=== PATIENT | male | born 1945 | race Caucasian/White ===

== ENCOUNTER → 2016-06-06 | Outpatient (CLI) | payer OTHER, MEDICARE ==
--- NOTE | 2016-06-06 16:31 | US ---
Ultrasound Right Extremity Nonvascular History: R22.9, localized swelling, mass, lump anterior right thigh. Findings: Ultrasound imaging of the anterior distal right thigh region corresponding to the area of palpable concern demonstrates normal-appearing subcutaneous soft tissue, measuring up to 2.6 cm in th ickness, without evidence of focal identifiable mass. However, this appears asymmetrically thicker t perez the left anterior thigh, which measures up to 1.7 cm. Impressions 1. Asymmetric subcutaneous fat along the anterior right thigh corresponding to the region of palpabl e concern, without evidence of focal discrete soft tissue mass. 2. Recommend MRI thigh, without and with contrast, for further evaluation if there is continued clin ical concern.
== END ==
LOC: FIMAGING 12:48
PROVIDERS: ATTEND Internal Medicine
DX: R22.9 Localized swelling, mass and lump, unspecified (principal)

== ENCOUNTER → 2016-07-04 | Outpatient (CLI) | payer OTHER ==
--- NOTE | 2016-07-04 12:50 | DX ---
PA and Lateral Chest - July 04, 2016 Indication: Cough for one month. Comparison: Two-view chest dated May 26, 2013. Findings: Mild diffuse peribronchial thickening is unchanged since April 2013. No pulmonary nodule , airspace consolidation or mass has developed. No pleural effusion. Posttraumatic versus postsurgica l deformity of the distal right clavicle is unchanged. Impression: 1. Chronic mild airways disease. 2. No pulmonary nodule or pneumonia.
== END ==
LOC: FIMAGING 09:34
PROVIDERS: ATTEND Internal Medicine Hematology & Oncology
DX: R05 Cough (principal)

== ENCOUNTER → 2017-02-26 | Outpatient (CLI) | payer OTHER, MEDICARE | LOC: CIMAGING 16:58 | PROVIDERS: ATTEND Internal Medicine | DX: R06.00 Dyspnea, unspecified (principal); R91.8 Other nonspecific abnormal finding of lung field | CPT/HCPCS: 71020-PO; 90662-PO; G0008-PO; G0463-PO ==

== ENCOUNTER → 2017-03-01 | Outpatient (CLI) | payer OTHER, MEDICARE | LOC: CIMAGING 13:27 | PROVIDERS: ATTEND Internal Medicine | DX: R91.1 Solitary pulmonary nodule (principal) | CPT/HCPCS: 71250-PO ==

== ENCOUNTER 2017-07-14 18:31 | Inpatient (IN) | payer OTHER, MEDICARE ==
--- NOTE | 2017-07-14 18:46 | EDPHY ---
H & P Time Seen by Provider: 07/14/17 18:45 - Personal History Tetanus Vaccine Date: ADM 09/14/13 - Medical/Surgical History Hx Asthma: No Hx Chronic Respiratory Disease: No Hx Diabetes: No Hx Cardiac Disease: No Hx Renal Disease: No Hx Cirrhosis: No Hx Alcoholism: No Hx HIV/AIDS: No Hx Splenectomy or Spleen Trauma: No Other PMH: medical- 2L O2 hs, obesity, chronic back pain. surgical- 2R rotator surg; bilat meniscus, bilat elbow tendon rep, spinal stenosis, back surgery, lumbar fusion, prostatectomy, wt gain from surgeries, hip surg 12/12/16; AMBER; hypertension - Social History Smoking Status: Never smoked Constitutional: Initial Vital Signs Temperature (C) 37.9 C 07/14/17 18:48 Heart Rate 106 H 07/14/17 18:48 Respiratory Rate 22 H 07/14/17 18:48 Blood Pressure 154/94 H 07/14/17 18:48 O2 Sat (%) 98 07/14/17 18:48 O2 Delivery Mode Nasal Cannula O2 (L/minute) 2 Allergies/Adverse Reactions: Penicillins Allergy (Intermediate, Verified 12/24/16 13:56) Hives Home Medications: Medication Instructions Recorded DULoxetine [Cymbalta 60 MG (*)] 60 mg PO DAILY 05/27/13 Ibuprofen [Motrin (*)] 400 - 600 mg PO BID PRN 09/07/16 Spironolactone [Aldactone 25 MG 25 mg PO DAILY 09/07/16 (*)] Metoprolol Tartrate 50 mg PO BID 12/24/16 Tamsulosin HCl 0.4 mg PO DAILY 12/24/16 Baclofen [Baclofen 20 mg (*)] 20 mg PO TID PRN 07/14/17 Promethazine HCl [Phenergan 25mg 25 mg PO Q4H PRN 07/14/17 (*)] amLODIPine BESYLATE [Norvasc 5 mg 5 mg PO DAILY 07/14/17 (*)] Medical Decision Making - Diagnostics Imaging Results: Imaging Impressions Cervical Spine CT 07/14/17 18:45 Impression: 1. CT of the cervical spine negative for acute traumatic injury. 2. Prior diskectomy and fusion at C3-C4 without hardware complication. 3. Extensive multilevel cervical degenerative disk disease. Results called to Dr. Prabhjot Barcenas at 7:[address] 07/14/17 18:45 Impression: Negative noncontrast CT of the brain. Underlying atrophy. Results called to Dr. Prabhjot Barcenas at 7:30 PM at the time of the interpretation. Chest X-Ray 07/14/17 19:14 Impression: Cardiomegaly and central pulmonary vascular prominence, without focal infiltrate or pleural effusion. Imaging: Discussed imaging studies w/ supervisor ski production Radiologist, I viewed and interpreted images myself ED Course/Re-evaluation: CHIEF COMPLAINT: Fall, oral trauma, altered mental status HISTORY OF PRESENT ILLNESS: The patient is a 72 y/o male with a history of alcoholism and polysubstance abuse arriving via EMS for oral trauma secondary to a fall. Per his daughter, he was found by his director of instructional technology down on the floor with the CPAP machine still attached to him. The CPAP machine was full of blood. Per his daughter, the patient was admitted last year for an Ambien overdose. Tonight he is more altered than normal. Unable to obtain further information from the patient due to his altered mental status. REVIEW OF SYSTEMS: A 10 point review of systems was performed and is negative with the exception of the elements mentioned in the history of present illness. PHYSICAL EXAM: HR, BP, O2 Sat, RR. Temp noted General Appearance: Alert, well hydrated, appropriate, and non-toxic appearing. Head: Atraumatic without scalp tenderness or obvious injury Eyes: Pupils equal, round, reactive to light and accommodation, EOMI, no trauma , no injection. Ears: Clear bilaterally, no perforation, normal landmarks Nose: Atraumatic, no rhinorrhea, clear. Throat: There is no erythema or exudates, no lesions, normal tonsils, mucus membranes moist. Neck: Supple, nontender, no lymphadenopathy. Respiratory: No retractions, no distress, no wheezes, and no accessory muscle use. Lungs are clear to auscultation bilaterally. Cardiovascular: Regular rate and rhythm, no murmurs, rubs, or gallops. Bilateral carotid, radial, dorsalis pedis, and posterior tibial pulses intact. Good capillary refill all extremities. Gastrointestinal: Abdomen is soft, nontender, non-distended, no masses, no rebound, no guarding, no peritoneal signs. Musculoskeletal: Normal active ROM of all extremities, atraumatic. Neurological: Altered, non-verbal, not answering questions, not oriented Skin: No rashes, good turgor, no nodules on palpation. Past medical history: Obesity, chronic back pain, hypertension Past surgical history: Rotator surgery, bilateral meniscus repair, bilateral elbow tendon rep, spinal stenosis, lumbar fusion, prostatectomy, hip surgery Family history: Denies Social history: Alcoholic, polysubstance abuse DIAGNOSTICS/PROCEDURES/CRITICAL CARE TIME: The 12 lead EKG was interpreted by myself as sinus tachycardia with a rate of 114. See hard copy and/or "tracemaster" electronic copy for interpretation. Head CT: No acute findings Cervical CT: No acute findings Lumbar CT: No acute findings Chest x-ray: Cardiomegaly DIFFERENTIAL DIAGNOSIS: The differential diagnosis for the patient's altered mental status included but was not limited to hypoglycemia, infectious process, electrolyte abnormality, head injury, neurologic process, anemia, cardiac process, and intoxicants. MEDICAL DECISION MAKING: The patient is a 72 y/o male with a history of alcoholism and polysubstance abuse arriving via EMS for oral trauma secondary to a fall. During my physical exam the patient is altered, non-verbal, not answering questions, and is not oriented. Head, cervical, and lumbar CT Ordered. Chest x-ray ordered. Labs ordered. 1916: EKG reveals sinus tachycardia with a rate of 114. 1929: Spoke with radiologist, patient's head and cervical CT reveal no acute findings. 1939: 2mg IV Ativan administered so patient can receive a lumbar CT. UA ordered. 2006: Patient's altered mental status is due to an unclear etiology. He will be treated in case of sepsis; he does not have septic shock. He is hyponatremic and hypochloremic. 3L IV NS and Cefepime administered. 2047: Consulted with hospitalist service, Dr. Caicedo accepts admission of this patient. 2139: Spoke with radiologist, there are no acute findings from the lumbar CT. - Data Points Laboratory Results: Laboratory Results 07/14/17 18:46 07/14/17 18:46 07/14/17 07/14/17 07/14/17 19:51 19:49 19:49 WBC RBC Hgb Hct MCV MCH MCHC RDW Plt Count MPV Neut % (Auto) Lymph % (Auto) [place] % (Auto) Eos % (Auto) Baso % (Auto) Nucleat RBC Rel Count Absolute Neuts (auto) Absolute Lymphs (auto) Absolute Monos (auto) Absolute Eos (auto) Absolute Basos (auto) Absolute Nucleated RBC Immature Gran % Immature Gran # PT INR APTT VBG Lactic Acid 2.7 mmol/L H mmol/L (0.7-2.1) Sodium Potassium Chloride Carbon Dioxide Anion Gap BUN Creatinine Estimated GFR Glucose Calcium Total Bilirubin Conjugated Bilirubin Unconjugated Bilirubin Ammonia < 9.0 uMOL/L L uMOL/L (9.0-30.0) Creatine Kinase CK-MB (CK-2) Fraction CK-MB (CK-2) % Creatine Kinase Interp Urine Color YELLOW Urine Appearance CLEAR Urine pH 7.0 (5.0-7.5) Ur Specific [place] 1.010 (1.002-1.030) Urine Protein 2+ H (NEGATIVE) Urine Ketones 1+ H (NEGATIVE) Urine Blood 2+ H (NEGATIVE) Urine Nitrate NEGATIVE (NEGATIVE) Urine Bilirubin NEGATIVE (NEGATIVE) Urine Urobilinogen NEGATIVE EU EU (0.2-1.0) Ur Leukocyte Esterase NEGATIVE (NEGATIVE) Urine RBC 3-5 /hpf H /hpf (0-3) Urine WBC 3-5 /hpf H /hpf (0-3) Ur Epithelial Cells NONE SEEN /lpf /lpf (NONE-1+) Urine Bacteria TRACE /hpf H /hpf (NONE SEEN) Hyaline Casts 5-15 /lpf /lpf (0-1) Urine Mucus TRACE /lpf /lpf (NONE-1+) Urine Glucose NEGATIVE (NEGATIVE) Salicylates Urine Opiates Screen NEGATIVE (NEGATIVE) Acetaminophen Urine Barbiturates NEGATIVE (NEGATIVE) Ur Phencyclidine Scrn NEGATIVE (NEGATIVE) Ur Amphetamine Screen NEGATIVE (NEGATIVE) U Benzodiazepines Scrn NEGATIVE (NEGATIVE) Urine Cocaine Screen NEGATIVE (NEGATIVE) U Marijuana (THC) Screen NON-NEGATIVE H (NEGATIVE) Ethyl Alcohol 07/14/17 07/14/17 07/14/17 18:46 18:46 18:46 WBC RBC Hgb Hct MCV MCH MCHC RDW Plt Count MPV Neut % (Auto) Lymph % (Auto) [place] % (Auto) Eos % (Auto) Baso % (Auto) Nucleat RBC Rel Count Absolute Neuts (auto) Absolute Lymphs (auto) Absolute Monos (auto) Absolute Eos (auto) Absolute Basos (auto) Absolute Nucleated RBC Immature Gran % Immature Gran # PT 12.8 SEC SEC (12.0-15.0) INR 0.94 (0.83-1.16) APTT 27.8 SEC SEC (23.0-38.0) VBG Lactic Acid Sodium 127 mEq/L L mEq/L (135-145) Potassium 3.7 mEq/L mEq/L (3.5-5.2) Chloride 89 mEq/L L mEq/L (97-110) Carbon Dioxide 20 mEq/l L mEq/l (22-31) Anion Gap 18 mEq/L H mEq/L (8-16) BUN 5 mg/dL L mg/dL (7-23) Creatinine 0.7 mg/dL mg/dL (0.7-1.3) Estimated GFR > 60 Glucose 144 mg/dL H mg/dL (70-100) Calcium 9.9 mg/dL mg/dL (8.5-10.4) Total Bilirubin 2.2 mg/dL H mg/dL (0.1-1.4) Conjugated Bilirubin 0.6 mg/dL H mg/dL (0.0-0.5) Unconjugated Bilirubin 1.6 mg/dL H mg/dL (0.0-1.1) Ammonia Creatine Kinase 1171 IU/L H IU/L (0-224) CK-MB (CK-2) Fraction 23.20 ng/mL H ng/mL (0.00-3.19) CK-MB (CK-2) % 2.0 % % (0.0-4.0) Creatine Kinase Interp NEGATIVE (NEGATIVE) Urine Color Urine Appearance Urine pH Ur Specific [place] Urine Protein Urine Ketones Urine Blood Urine Nitrate Urine Bilirubin Urine Urobilinogen Ur Leukocyte Esterase Urine RBC Urine WBC Ur Epithelial Cells Urine Bacteria Hyaline Casts Urine Mucus Urine Glucose Salicylates < 1.0 mg/dL L mg/dL (2.0-20.0) Urine Opiates Screen Acetaminophen < 10 mcg/mL L mcg/mL (10-30) Urine Barbiturates Ur Phencyclidine Scrn Ur Amphetamine Screen U Benzodiazepines Scrn Urine Cocaine Screen U Marijuana (THC) Screen Ethyl Alcohol < 10 mg/dL mg/dL (0-10) 07/14/17 18:46 WBC 19.54 10^3/uL H 10^3/uL (3.80-9.50) RBC 5.52 10^6/uL 10^6/uL (4.40-6.38) Hgb 17.5 g/dL g/dL (13.7-17.5) Hct 48.3 % % (40.0-51.0) MCV 87.5 fL fL (81.5-99.8) MCH 31.7 pg pg (27.9-34.1) MCHC 36.2 g/dL g/dL (32.4-36.7) RDW 12.9 % % (11.5-15.2) Plt Count 448 10^3/uL H 10^3/uL (150-400) MPV 8.0 fL L fL (8.7-11.7) Neut % (Auto) 87.4 % H % (39.3-74.2) Lymph % (Auto) 3.5 % L % (15.0-45.0) [place] % (Auto) 8.3 % % (4.5-13.0) Eos % (Auto) 0.0 % L % (0.6-7.6) Baso % (Auto) 0.2 % L % (0.3-1.7) Nucleat RBC Rel Count 0.0 % % (0.0-0.2) Absolute Neuts (auto) 17.08 10^3/uL H 10^3/uL (1.70-6.50) Absolute Lymphs (auto) 0.69 10^3/uL L 10^3/uL (1.00-3.00) Absolute Monos (auto) 1.63 10^3/uL H 10^3/uL (0.30-0.80) Absolute Eos (auto) 0.00 10^3/uL L 10^3/uL (0.03-0.40) Absolute Basos (auto) 0.03 10^3/uL 10^3/uL (0.02-0.10) Absolute Nucleated RBC 0.00 10^3/uL 10^3/uL (0-0.01) Immature Gran % 0.6 % % (0.0-1.1) Immature Gran # 0.11 10^3/uL H 10^3/uL (0.00-0.10) PT INR APTT VBG Lactic Acid Sodium Potassium Chloride Carbon Dioxide Anion Gap BUN Creatinine Estimated GFR Glucose Calcium Total Bilirubin Conjugated Bilirubin Unconjugated Bilirubin Ammonia Creatine Kinase CK-MB (CK-2) Fraction CK-MB (CK-2) % Creatine Kinase Interp Urine Color Urine Appearance Urine pH Ur Specific [place] Urine Protein Urine Ketones Urine Blood Urine Nitrate Urine Bilirubin Urine Urobilinogen Ur Leukocyte Esterase Urine RBC Urine WBC Ur Epithelial Cells Urine Bacteria Hyaline Casts Urine Mucus Urine Glucose Salicylates Urine Opiates Screen Acetaminophen Urine Barbiturates Ur Phencyclidine Scrn Ur Amphetamine Screen U Benzodiazepines Scrn Urine Cocaine Screen U Marijuana (THC) Screen Ethyl Alcohol Medications Given: Discontinued Medications Cefepime HCl 2 gm/ Sterile (Water) 12.5 mls @ 150 mls/hr IV EDNOW ONE PRN Reason: Protocol Stop: 07/14/17 20:10 Last Admin: 07/14/17 20:25 Dose: 12.5 mls Sodium Chloride (Ns) 3,000 mls @ 6,000 mls/hr 30 ml/kg infuse over 30 min ( 3000 ml) IV EDNOW ONE PRN Reason: Protocol Stop: 07/14/17 20:35 Last Admin: 07/14/17 20:18 Dose: 3,000 mls Lorazepam (Ativan Injection) 2 mg IVP EDNOW ONE Stop: 07/14/17 19:35 Last Admin: 07/14/17 19:38 Dose: 2 mg Lorazepam (Ativan Injection) 2 mg IVP ONCE ONE Stop: 07/14/17 20:31 Last Admin: 07/14/17 20:31 Dose: 2 mg Lorazepam (Ativan Injection) 2 mg IVP ONCE ONE Stop: 07/14/17 20:59 Last Admin: 07/14/17 20:59 Dose: 2 mg Departure - Departure Disposition: [facility]patient Acute Clinical Impression: Altered mental status Qualifiers: Altered mental status type: unspecified Qualified Code(s): R41.82 - Altered mental status, unspecified Condition: Fair Report Scribed for: Prabhjot Barcenas Report Scribed by: Dora Lancaster Date of Report: 07/14/17 Time of Report: 18:47
[2017-07-14 18:56] LABS: PLATELET COUNT 448 10^3/uL (150-400)
[2017-07-14 19:04] LABS: INR 0.94 (0.83-1.16); PROTIME(PATIENT) 12.8 SEC (12.0-15.0)
[2017-07-14] MEDS ORDERED: LORazepam 2 MG/ML INJ ONE ×2 (19:30→20:37)
[2017-07-14] MEDS ORDERED: LORazepam 2 MG/ML INJ IVP ONE ×3 (19:34→20:58)
--- NOTE | 2017-07-14 19:53 | CPEKG ---
Heart Rate: 106 RR Interval: 566 P-R Interval: 164 QRSD Interval: 92 QT Interval: 368 QTC Interval: 489 P [place]: 27 QRS [place]: 46 T Wave [place]: -5 EKG Severity - BORDERLINE ECG - EKG Impression: INCOMPLETE ANALYSIS DUE TO MISSING DATA IN PRECORDIAL LEAD(S) EKG Impression: SINUS TACHYCARDIA EKG Impression: BORDERLINE PROLONGED QT INTERVAL Electronically Signed By: Prabhjot Barcenas 14-Jul-2017 20:31:59
[2017-07-14 19:54] LABS: CREATINE KINASE 1171 IU/L (0-224)
[2017-07-14] MEDS ORDERED: NS 3,000 ML IV ONE (20:06)
[2017-07-14] MEDS ORDERED: CEFEPIME HCL 2 GM in STERILE WATER INJ 12.5 ML IV ONE (20:06)
[2017-07-14] MEDS ORDERED: ACETAMINOPHEN 650 MG SUPP PR PRN (22:38)
[2017-07-14] MEDS ORDERED: ONDANSETRON 4 MG/2 ML VIAL IVP PRN (22:38)
[2017-07-14] MEDS: NS 1,000 ML IV SCH (23:30)
[2017-07-14 23:34] LABS: CREATINE KINASE 1025 IU/L (0-224)
--- NOTE | 2017-07-15 00:06 | PDGENHP ---
History and Physical - Chief Complaint altered mental status - History of Present Illness Source - patient unable to provide history at this time. He presented altered and unresponsive. Case was discussed with accepting provider and EMR was reviewed. HPI - this is a 72-year-old gentleman with past medical history significant for hypertension, BPH, alcoholism and polysubstance abuse, AMBER on CPAP and chronic pain on chronic narcotic therapy who presents to the emergency department via EMS after the laundry housekeeper found the patient down on unresponsive. Patient was noted to have a CPAP mask on that was bloodied. At time of my interview patient was quite somnolent but he was able to stay awake enough to answer just a few yes no questions. Patient was able to state that he knew he was in the hospital. He was noted that he had been taking a lot of medications but was unable to clarify which ones. He does have a history of a Ambien overdose in November of 2016. He also has a known history of alcoholism but unable to clarify when his last drink was. Patient's alcohol level in the emergency department was negative. On exam patient is noted to also have some bruising/abrasions to his right face left upper thigh and right knee. Patient is not able to provide any additional history. In the ED, patient underwent CT head and lumbar spine that was negative for any acute findings. Chest x-ray was also found to be clear. Patient was noted to be somnolent and nonverbal. He was also meeting SIRS criteria with elevated lactate and hyperbilirubinemia. He was given 30 mL/kg bolus IV fluids and blood cultures were obtained but no antibiotics were started as there is no evidence of source. History Information - Allergies/Home Medication List Allergies/Adverse Reactions: Penicillins Allergy (Intermediate, Verified 12/24/16 13:56) Hives Home Medications: DULoxetine [Cymbalta 60 MG (*)] 60 mg PO DAILY 05/27/13 [Last Taken 05/27/13] Ibuprofen [Motrin (*)] 400 - 600 mg PO BID PRN 09/07/16 [Last Taken 12/22/16] Spironolactone [Aldactone 25 MG (*)] 25 mg PO DAILY 09/07/16 [Last Taken Unknown ] Metoprolol Tartrate 50 mg PO BID 12/24/16 [Last Taken Unknown] Tamsulosin HCl 0.4 mg PO DAILY 12/24/16 [Last Taken Unknown] Baclofen [Baclofen 20 mg (*)] 20 mg PO TID PRN 07/14/17 [Last Taken Unknown] Promethazine HCl [Phenergan 25mg (*)] 25 mg PO Q4H PRN 07/14/17 [Last Taken Unknown] amLODIPine BESYLATE [Norvasc 5 mg (*)] 5 mg PO DAILY 07/14/17 [Last Taken Unknown] I have personally reviewed and updated: family history, medical history, social history, surgical history - Past Medical History Additional medical history: Per EMR-HTN, BPH, ETOH, AMBER on CPAP with 2 lpm, obesity, chronic pain, chronic narcotic therapy, spinal stenosis, decreased right eye vision related to retinal surgery - Surgical History Additional surgical history: Per EMR - Prostatectomy, hip, retina, bilateral rotator cuff, bilateral meniscus/arthroscopy, bilateral elbow tendon repair, lumbar fusion x3, cervical spine - Family History Additional family history: Unable to obtain secondary to patient's AMS - Social History Smoking Status: Never smoked Alcohol Use: Other (History of alcoholism. Current remission status unknown) Drug Use: Other (Prescription narcotics and sedatives.) Additional social history: Patient lives alone. 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 Cor - no advance directives on file. Patient will remain a full full code at this time. Review of Systems Review of Systems: Unable to obtain full review of systems at this time secondary to patient's encephalopathy. Patient does deny chest pain, shortness of breath, pain currently. He is oriented to person and place but not time. Physical Exam Physical Exam: Selected Entries 07/14/17 18:48 Blood Pressure Automatic Method Heart Rate 106 H Respiratory 22 H Rate O2 Sat (%) 98 Temperature (C) 37.9 C Blood Pressure 154/94 H Mean Arterial 114 H Pressure (MAP) O2 Delivery Room Air Mode Temperature Axillary Source Temp Pulse Resp BP Pulse Ox 37.1 C 112 H 27 H 158/100 H 94 07/14/17 21:28 07/14/17 22:00 07/14/17 22:00 07/14/17 22:00 07/14/17 22:00 O2 (L/minute) 1 Constitutional: no apparent distress, chronically ill appearing, obese, other ( NAD. patient is somnolent but wakes to name and commands and falls back asleep. able to answer few yes/no questions and follow simple commands. chronically ill appearing elderly obese male. ) Eyes: PERRL, anicteric sclera, EOMI, other (lens reflex appreciated right eye. ) , No icteric sclera, No scleral injection Ears, Nose, Mouth, Throat: ears appear normal, oral ulcer (patient with lateral wounds. blanching tissue. dried blood and bruising to tongue bilaterally. ), dry mucous membranes Cardiovascular: regular rate and rhythym (tachy 100s), tachycardia, No systolic murmur, No edema Peripheral Pulses: 2+: dorsalis-pedis (R), dorsalis-pedis (L) Respiratory: no respiratory distress, no rales or rhonchi, clear to auscultation , No expiratory wheeze Gastrointestinal: normoactive bowel sounds, soft, non-tender abdomen, no palpable masses, other (obese), No distension Genitourinary: no bladder tenderness, jackson in urethra Skin: warm, normal color, abrasion (right forehead, left proximal anterior thigh , right knee), No rash Musculoskeletal: generalized weakness, other (limited exam 2/2 patient somnolence) Neurologic: other (grossly nonfocal exam. limited 2/2 patient encephalopathy. ) , No facial droop Psychiatric: encephalopathic Lab Data & Imaging Review 07/14/17 18:46 07/14/17 23:10 WBC 19.54 10^3/uL (3.80-9.50) H 18 18:46 RBC 5.52 10^6/uL (4.40-6.38) 18 18:46 Hgb 17.5 g/dL (13.7-17.5) 1818 18:46 Hct 48.3 % (40.0-51.0) 1818 18:46 MCV 87.5 fL (81.5-99.8) 18 18:46 MCH 31.7 pg (27.9-34.1) 1818 18:46 MCHC 36.2 g/dL (32.4-36.7) 1818 18:46 RDW 12.9 % (11.5-15.2) 18 18:46 Plt Count 448 10^3/uL (150-400) H 07/14/17 18:46 MPV 8.0 fL (8.7-11.7) L 07/14/17 18:46 Neut % (Auto) 87.4 % (39.3-74.2) H 07/14/17 18:46 Lymph % (Auto) 3.5 % (15.0-45.0) L 07/14/17 18:46 Dougherty % (Auto) 8.3 % (4.5-13.0) 07/14/17 18:46 Eos % (Auto) 0.0 % (0.6-7.6) L 07/14/17 18:46 Baso % (Auto) 0.2 % (0.3-1.7) L 07/14/17 18:46 Nucleat RBC Rel Count 0.0 % (0.0-0.2) 07/14/17 18:46 Absolute Neuts (auto) 17.08 10^3/uL (1.70-6.50) H 07/14/17 18:46 Absolute Lymphs (auto) 0.69 10^3/uL (1.00-3.00) L 07/14/17 18:46 Absolute Monos (auto) 1.63 10^3/uL (0.30-0.80) H 07/14/17 18:46 Absolute Eos (auto) 0.00 10^3/uL (0.03-0.40) L 07/14/17 18:46 Absolute Basos (auto) 0.03 10^3/uL (0.02-0.10) 07/14/17 18:46 Absolute Nucleated RBC 0.00 10^3/uL (0-0.01) 07/14/17 18:46 Immature Gran % 0.6 % (0.0-1.1) 07/14/17 18:46 Immature Gran # 0.11 10^3/uL (0.00-0.10) H 07/14/17 18:46 PT 12.8 SEC (12.0-15.0) 07/14/17 18:46 INR 0.94 (0.83-1.16) 07/14/17 18:46 APTT 27.8 SEC (23.0-38.0) 07/14/17 18:46 Puncture Site VENOUS 07/14/17 23:10 Patient Temperature 37.0 DEGREES 07/14/17 23:10 VBG pH 7.43 (7.31-7.42) H 07/14/17 23:10 VBG HCO3 20 mEQ/L (22-26) L 07/14/17 23:10 VBG Total CO2 21 mEq/L (23-27) L 07/14/17 23:10 VBG O2 Saturation 86 % (65-75) H 07/14/17 23:10 VBG Base Excess -2.3 mEq/L (-2.5-2.5) 07/14/17 23:10 VBG Lactic Acid 1.9 mmol/L (0.7-2.1) 07/14/17 21:05 Mixed VBG pCO2 31 mmHg (40-44) L 07/14/17 23:10 Mixed VBG pO2 51 mmHg (35-40) H 07/14/17 23:10 Sodium 128 mEq/L (135-145) L 07/14/17 23:10 Potassium 3.0 mEq/L (3.5-5.2) L 07/14/17 23:10 Chloride 96 mEq/L (97-110) L 07/14/17 23:10 Carbon Dioxide 18 mEq/l (22-31) L 07/14/17 23:10 Anion Gap 14 mEq/L (8-16) 07/14/17 23:10 BUN 5 mg/dL (7-23) L 07/14/17 23:10 Creatinine 0.7 mg/dL (0.7-1.3) 07/14/17 23:10 Estimated GFR > 60 07/14/17 23:10 Glucose 142 mg/dL (70-100) H 07/14/17 23:10 Calcium 8.8 mg/dL (8.5-10.4) 07/14/17 23:10 Magnesium 1.9 mg/dL (1.6-2.3) 07/14/17 23:10 Total Bilirubin 2.2 mg/dL (0.1-1.4) H 07/14/17 18:46 Conjugated Bilirubin 0.6 mg/dL (0.0-0.5) H 07/14/17 18:46 Unconjugated Bilirubin 1.6 mg/dL (0.0-1.1) H 07/14/17 18:46 Ammonia < 9.0 uMOL/L (9.0-30.0) L 07/14/17 19:49 Creatine Kinase 1025 IU/L (0-224) H 07/14/17 23:10 CK-MB (CK-2) Fraction 23.20 ng/mL (0.00-3.19) H 07/14/17 18:46 CK-MB (CK-2) % 2.0 % (0.0-4.0) 07/14/17 18:46 Creatine Kinase Interp NEGATIVE (NEGATIVE) 07/14/17 18:46 NT-Pro-B Natriuret Pep 2980 pg/mL (0-125) H 07/14/17 23:10 Urine Color YELLOW 07/14/17 19:51 Urine Appearance CLEAR 07/14/17 19:51 Urine pH 7.0 (5.0-7.5) 07/14/17 19:51 Ur Specific [place] 1.010 (1.002-1.030) 07/14/17 19:51 Urine Protein 2+ (NEGATIVE) H 07/14/17 19:51 Urine Ketones 1+ (NEGATIVE) H 07/14/17 19:51 Urine Blood 2+ (NEGATIVE) H 07/14/17 19:51 Urine Nitrate NEGATIVE (NEGATIVE) 07/14/17 19:51 Urine Bilirubin NEGATIVE (NEGATIVE) 07/14/17 19:51 Urine Urobilinogen NEGATIVE EU (0.2-1.0) 07/14/17 19:51 Ur Leukocyte Esterase NEGATIVE (NEGATIVE) 07/14/17 19:51 Urine RBC 3-5 /hpf (0-3) H 07/14/17 19:51 Urine WBC 3-5 /hpf (0-3) H 07/14/17 19:51 Ur Epithelial Cells NONE SEEN /lpf (NONE-1+) 07/14/17 19:51 Urine Bacteria TRACE /hpf (NONE SEEN) H 07/14/17 19:51 Hyaline Casts 5-15 /lpf (0-1) 07/14/17 19:51 Urine Mucus TRACE /lpf (NONE-1+) 07/14/17 19:51 Urine Glucose NEGATIVE (NEGATIVE) 07/14/17 19:51 Salicylates < 1.0 mg/dL (2.0-20.0) L 07/14/17 18:46 Urine Opiates Screen NEGATIVE (NEGATIVE) 07/14/17 19:51 Acetaminophen < 10 mcg/mL (10-30) L 07/14/17 18:46 Urine Barbiturates NEGATIVE (NEGATIVE) 07/14/17 19:51 Ur Phencyclidine Scrn NEGATIVE (NEGATIVE) 07/14/17 19:51 Ur Amphetamine Screen NEGATIVE (NEGATIVE) 07/14/17 19:51 U Benzodiazepines Scrn NEGATIVE (NEGATIVE) 07/14/17 19:51 Urine Cocaine Screen NEGATIVE (NEGATIVE) 07/14/17 19:51 U Marijuana (THC) Screen NON-NEGATIVE (NEGATIVE) H 07/14/17 19:51 Ethyl Alcohol < 10 mg/dL (0-10) 07/14/17 18:46 Imaging Review: Portable AP chest. 07/14/2017 at 1941 History: Meets sepsis criteria, suspected infection Comparison study: February 26, 2017 Findings: Cardiac silhouette is mildly prominent. There is also mild prominence of pulmonary vascularity centrally. No focal infiltrate or pleural effusion identified. Impression: Cardiomegaly and central pulmonary vascular prominence, without focal infiltrate or pleural effusion. Noncontrast Head CT Indication: Altered mental status.. Technique: Standard noncontrast axial CT images of the head were performed. Dose reduction techniques were utilized. Comparison Study: December 24, 2016 Findings: Underlying cerebral and cerebellar atrophy is again noted, similar to previous examination. No evidence of intracranial hemorrhage, mass or mass effect, midline shift. Reconstructed bone windows are negative for fracture. The paranasal sinuses are clear. Impression: Negative noncontrast CT of the brain. Underlying atrophy. Results called to Dr. Prabhjot Barcenas at 7:30 PM at the time of the interpretation. CT of the lumbar spine, without contrast History: Prior lumbar spine surgery. Patient found down. Technique: Axial CT images of the lumbar spine were obtained without contrast, and were reformatted in sagittal and coronal planes. Dose reduction techniques were utilized. Findings: There are features of fusion and instrumentation of the lumbar spine from L2 through S1, with bilateral pedicle screws and posterior cuba fixation at L2-L3 and L5-S1. Prior instrumentation with hardware removal and anterior fusion is present at L3-L4 and L4-L5. There are advanced features of degenerative disk disease and marked intervertebral disk height loss at L1-L2. No acute vertebral body fracture is identified. Alignment is anatomic. The lumbar spinal canal appears preserved throughout with decompressive laminectomy from L3 through L5. Impression: Status post instrumentation and fusion of the lumbar spine from L2 through S1, without hardware complication. No acute fracture identified. Advanced degenerative intervertebral disk height loss at L1-L2. Results called to Dr. Prabhjot Barcenas at 9:[address] Scan of the Cervical Spine (Without Contrast) Clinical Indications: Patient found down. Technique: Thinly collimated multidetector helical CT imaging of the cervical spine was reviewed in multiple planes. Dose reduction techniques were utilized. Findings: No fractures are found. Surgical features of diskectomy and fusion noted at C3-C4 without complication. There is both posterior and anterior instrumentation at this level. Cystic change within the odontoid is benign in features with smooth margination. There is marked degenerative disk disease and disk height loss at C4-C5, C5-C6, and C6-C7, with posterior bony osteophyte formation. Impression: 1. CT of the cervical spine negative for acute traumatic injury. 2. Prior diskectomy and fusion at C3-C4 without hardware complication. 3. Extensive multilevel cervical degenerative disk disease. Results called to Dr. Prabhjot Barcenas at 7:30 p.m. EKG additional interpertation: sinus tachy 100s. ST depression V3,V4. no acute ST elevations. QTc 489. Assessment & Plan Assessment: #Acute encephalopathy - DDX including polysubstance/polypharmacy vs. syncope vs etoh withdrawal vs. metabolic acidosis vs. sepsis (no source yet identified and lower suspicion for infectious source) vs hyponatremia vs less likely CVA (pt moves all extremities, CT head negative) vs seizure (patient with history of biting his tongue. He does have a history of alcoholism, ETOH level is negative will be placed on CIWA protocol. Patient has received high dose Ativan at this time. Patient's sodium also slightly decreased and receiving IV fluid resuscitation) vs less likely cardiogenic (pt denies chest pain at this time, trop pending). #Possible medication overdose - patient admits to over utilizing his own medications. He has a previous admission last year on for polypharmacy including overuse of his Ambien. Requesting assistance from pharmacy to review patient's PD MP if available. Patient's blood pressures are elevated at this time but will monitor closely on telemetry. Patient's mentation since arrival to the unit appears to be clearing slightly. He is able to answer a few more questions than when he arrived as he was nonverbal initially. #Syncope/fall - patient is unable to elaborate. He was found down with his CPAP mask on in place unresponsive. High suspicion for polypharmacy/overdose versus less likely cardiac or CVA. Patient currently denies any chest pain shortness of breath and without any hypoxia but consider further evaluation for PE if patient develops any symptoms. Will not order D-dimer at this time as it will likely be falsely elevated in setting of SIRS. Patient currently denying chest pain or shortness of breath but will need to reassess in the morning. He has not been hypoxic and without any lower extremity swelling for concerns of DVT.. Patient does have multiple wounds to his tongue him losing. Could be related to his fall versus possible seizure with history of alcohol dependence he may be withdrawing. Patient will also be placed on seizure precautions and CIWA protocol. CT head negative for acute findings. Exam grossly nonfocal but limited secondary to patient's somnolence. Will reassess tomorrow may require further imaging. #Sepsis without identified source - will check a rapid flu. Patient's lungs are clear UA is not indicative of active infection. He has no other signs or symptoms of infectious process at this time. Chest x-ray is clear. Patient received appropriate IV fluid hydration. Unable to identify specific source. Will not start any antibiotics at this time. Lactate has normalized after appropriate fluid resuscitation. Blood cultures x2 are pending. #Lactic acidosis - currently resolved status post IV fluids. #Hyponatremia - likely related to hypovolemia. Urine studies have been ordered including osmoles and lytes. #Hypochloremia - in setting of hyponatremia. Continue to monitor with IV fluid replacement. #Hyperbilirubinemia - likely stress response versus less likely on biliary obstruction. Patient without any abdominal tenderness on exam. Will continue to monitor and repeat LFTs in the morning after IV fluid resuscitation. #Thrombocytosis - likely reactive. Repeat CBC in the morning #Rhabdomyolysis - CK slightly elevated. Patient is receiving IV fluid hydration. Will repeat in the morning. #Hyperglycemia - no previous diagnosis of diabetes in the record. Continue to monitor with morning labs. #Hypokalemia - electrolyte replacement p.r.n. #Alcoholism remission status unknown - patient's alcohol level currently negative. He will be placed on CIWA protocol. Patient will also be started on thiamine replacement. #With AMBER on CPAP - supplemental oxygen at this time. Patient was found down with his CPAP mask in place but disconnected from the machine. No evidence of aspiration on current chest x-ray imaging #Benign essential hypertension - blood pressures remained slightly elevated. Will add metoprolol p.r.n. #BPH - Jackson catheter in place. Strict I&Os needed patient mentating mentation prohibits appropriate monitoring. #Chronic pain - holding any narcotics at this time. Patient is quite sedated. He given his history of alcoholism he will be placed on CIWA protocol with Ativan. #Obesity BMI 36.4 FEN - IVF. electrolyte replacement prn. NPO until mentation improved. PPX - SCDs. lovenox. COR - will leave as a full code at this time. Given patient's mentation unable to verify in previous admission last year he was also full code. Previous note indicates patient's son lives locally. Will further discuss with him tomorrow if patient's mentation does not clear. Dispo - patient admitted to inpatient status in the ICU. He is acutely ill and requires close monitoring. Anticipate greater than 2 midnight stay.
[2017-07-15] MEDS ORDERED: PROTOCOL K PHOSPHATE 1 DOSE IV PRN (00:23)
[2017-07-15] MEDS ORDERED: PROTOCOL MAGNESIUM 1 DOSE IV PRN (00:23)
[2017-07-15] MEDS ORDERED: PROTOCOL POTASSIUM 1 DOSE MISC PRN ×2 (00:23→15:36)
[2017-07-15] MEDS ORDERED: PROTOCOL CALCIUM 1 DOSE IV PRN (00:23)
[2017-07-15] MEDS ORDERED: LORazepam 2 MG/ML INJ IVP PRN (00:50)
[2017-07-15] MEDS ORDERED: METOPROLOL TARTRATE 5 MG/5 ML INJ IVP PRN (00:51)
[2017-07-15] MEDS: THIAMINE HCL 500 MG in NS 250 ML IV SCH (01:19)
[2017-07-15] MEDS: POTASSIUM Cl (KCl) 10 MEQ in NS 100 ML IV SCH ×7 (01:54→10:36)
[2017-07-15 04:41] LABS: PLATELET COUNT 341 10^3/uL (150-400)
[2017-07-15 04:53] LABS: PROTIME(PATIENT) 13.4 SEC (12.0-15.0)
[2017-07-15 05:00] LABS: CREATINE KINASE 678 IU/L (0-224)
[2017-07-15] MEDS ORDERED: CALCIUM GLUCONATE 1 GM in NS 100 ML IV ONE (06:30)
--- NOTE | 2017-07-15 07:59 | PDMN ---
Medical Necessity Medical necessity: Pt meets IP criteria per MD; est los >2 mn for eval/tx of acute encephalopathy; pt found down & unresponsive, noted to have bloodied CPAP on; admit to ICU for further workup/close monitoring, IVFs, electrolyte replacement, CIWA protocol & therapies, r/o possible polypharmacy overdose, syncope/fall, etoh withdrawl, metabolic acidosis, sepsis, hyponatremia, CVA, seizure, cardiogenic shock; hx alcoholism, polysubstance abuse, AMBER, HTN; per H& P & order 07/14/17
[2017-07-15] MEDS: FOLIC ACID 1 MG TAB PO SCH (08:38)
[2017-07-15] MEDS: ENOXAPARIN 40 MG/0.4 ML SYR SC SCH (08:38)
[2017-07-15] MEDS: MULTIVITAMINS 1 EACH TAB PO SCH (08:38)
[2017-07-15] MEDS: NS 1,000 ML IV SCH (08:47)
[2017-07-15] MEDS ORDERED: IOPAMIDOL (ISOVUE-300) 100 ML BTL ONE (13:08)
--- NOTE | 2017-07-15 14:39 | ASMTCMCOM ---
CM Note CM Note Notes: 72 year old male fell and hit his head. Admitted for AMS, lacerations on tongue and forehead. Neighbor found him down at home. Patient reports drinking 3 margaritas a day has never had sz. Has a daughter and son, one in [place] and the other in [place]. Patient doesn't feel he has a drinking problem. Has a hx of 4 spinal surgeries, rotator cuff surgeries, hip surgery, HTN, BPH, AMBER-cpap, Depression. Patient denies back pain and reports feeling good emotionally. He lives in a 1 level home and states that he "doesn't go out much."Therapies recommending SNF Rehab. Date Signed: 07/15/2017 02:38 PM Electronically Signed By:Lula Castorena LCSW
[2017-07-15] MEDS ORDERED: BACLOFEN 20 MG TAB PO PRN (14:52)
--- NOTE | 2017-07-15 15:18 | HOSPPROG ---
Hospitalist Progress Note Assessment/Plan: 72 yo M admitted w encephalopathy, sepsis, likely alcohol withdrawal seizure alcohol: history s/o sig use and clinical scenario c/w withdrawal seizure alert but tachycardic continue ciwa start low dose scheduled librium ?aspiration pneumonia: chest ct w no airspace disease holds abx elevated ck: not high ebough for rhabdo and trending down proph: lmwh sepsi: no source probably etoh related hyponatremia: improving 2/2 poor po intake dispo: transfer to floor Subjective: chest ct w no airspace disease (interp by me). case d/w dr flores. discussion w caregivers- sounds like he drinks all day every day Objective: Vital Signs Temp Pulse Resp BP Pulse Ox 37 C 115 H 23 H 141/89 H 93 07/15/17 12:00 07/15/17 12:00 07/15/17 12:00 07/15/17 12:00 07/15/17 12:00 Laboratory Results 07/15/17 04:30 07/15/17 04:30 07/14/17 07/15/17 07/16/17 05:59 05:59 05:59 Intake Total 2046 350 Output Total 700 1100 Balance 1346 -750 PT 13.4 SEC (12.0-15.0) 07/15/17 04:30 INR 1.00 (0.83-1.16) 07/15/17 04:30 - Physical Exam Constitutional: no apparent distress, appears nourished Eyes: PERRL, anicteric sclera Ears, Nose, Mouth, Throat: other (b/l teethmarks on tongue) Cardiovascular: tachycardia, No systolic murmur Respiratory: no respiratory distress, no rales or rhonchi Gastrointestinal: normoactive bowel sounds, soft, non-tender abdomen Genitourinary: no bladder fullness, No jackson in urethra Skin: warm, normal color Musculoskeletal: full muscle strength, no muscle tenderness Neurologic: AAOx3, sensation intact bilaterally Psychiatric: interacting appropriately ICD10 Worksheet Patient Problems: Problems Problem Status Onset Altered mental status Acute Alcohol abuse Acute Cervical spondylosis with myelopathy Acute
--- NOTE | 2017-07-15 15:27 | GCON ---
[f rep st] CONSULTATION PULMONARY CONSULTATION DATE OF CONSULTATION: 07/15/2017 HISTORY OF PRESENT ILLNESS: This patient is a 72-year-old male with a history of AMBER on CPAP, as wel l as alcoholism and polysubstance abuse, most notably Ambien overdose in the recent past, who was fou nd down by a friend wearing CPAP with blood in it. He was unaware of what was going on and not able to provide much history. He currently is also unable to recall the events. In the emergency departm ent he underwent a head CT that showed no acute findings. He did have significant tongue lacerations and swelling and there was some concerns for infection due to an elevated lactate and he was given s ubstantial IV fluids. Overnight he did well and had no other complications. Blood pressure remained normal and his lactate improved substantially. He really is unable to recall any of the events overnight, but feels that things are quite fine. He says he has not had any excessive alcohol that he normally takes, did not take any Ambien and pharmac y checked multiple outpatient pharmacies and was unable to find a filled prescription for Ambien at t his time. REVIEW OF SYSTEMS: Otherwise negative. PAST MEDICAL HISTORY: Includes hypertension, BPH, alcohol, sleep apnea, obesity, chronic pain, chron ic narcotic therapy, spinal stenosis, previous retinal surgery. PAST SURGICAL HISTORY: Includes prostatectomy, hip surgery, retina surgery, rotator cuff surgery, bi lateral meniscus surgery, elbow repair, lumbar fusion x3, as well as cervical spine surgery. SOCIAL HISTORY: He is a nonsmoker. Does have a history of alcoholism, but thought to be currently i n remission and narcotics and sedative difficulty in the past. CURRENT MEDICATIONS: Include Tylenol, Lovenox, Ativan p.r.n., Zofran, thiamine. PHYSICAL EXAM: VITAL SIGNS: He was afebrile. Heart rate was 108, sinus rhythm, blood pressure 124/ 74, respirations 25, oxygen saturation 94% on room air. GENERAL: He was easily aroused, appeared to be alert and oriented x3, in no apparent distress. Able to speak in full sentences without using ac cessory muscles for breathing. HEENT: Pupils equally round and reactive to light, nonicteric, nonin jected. Mucous membranes are moist without exudate, but his tongue had healing lacerations on both s ides, was normal sized. NECK: Supple without adenopathy or jugular vein distention. LUNGS: Breath sounds clear to auscultation bilaterally without wheezes, rubs, rales. HEART: Regular rate and rhy thm without murmurs, rubs, gallops. ABDOMEN: Soft, nontender, nondistended without hepatosplenomega ly. EXTREMITIES: Show no clubbing, cyanosis, or edema. OBJECTIVE DATA: Includes white count was 19, down to 14 without antibiotics. Troponin was 0.1 and w ent to 0.08. CK was 1100 down to about 600. Chest x-ray was negative. Blood cultures also negative . ASSESSMENT/PLAN: 1. Status post fall. The details are really unclear. Seizure seems unlikely since the patient is n ot actively in alcohol withdrawal and has never had seizures before and head CT was normal. Accident al drug overdose is high on my list of differential diagnosis, but difficult to prove at this point a nd he seems to be much better. I do not think a neurology consult or an EEG is required at this time . 2. Alcohol history. He is not obvious withdrawal at this time, simply observation will be required. 3. Hyponatremia. Sodium 127, is somewhat low, but I think is very unlikely to cause the above probl ems and is correcting normally. 4. Sleep apnea. His venous blood gas showed a pH 7.43. I do not think this was the underlying issu e and we will continue to observe. He can probably transfer to med/surg. /[id number]/MODL
[2017-07-15] MEDS: ACETAMINOPHEN 325 MG TAB PO PRN (17:30)
[2017-07-15] MEDS ORDERED: POTASSIUM CL 20 MEQ TAB PO ONE (22:00)
[2017-07-15] MEDS: METOPROLOL TARTRATE 50 MG TAB PO SCH (22:05)
[2017-07-16] MEDS ORDERED: METOPROLOL TARTRATE 50 MG TAB PO SCH (09:00)
[2017-07-16] MEDS ORDERED: POTASSIUM CL 10 MEQ TAB PO ONE ×2 (09:14→20:40)
[2017-07-16] MEDS: METOPROLOL TARTRATE 50 MG TAB PO SCH (09:18)
[2017-07-16] MEDS: SPIRONOLACTONE 25 MG TAB PO SCH (09:18)
[2017-07-16] MEDS: ENOXAPARIN 40 MG/0.4 ML SYR SC SCH (09:21)
[2017-07-16] MEDS: MULTIVITAMINS 1 EACH TAB PO SCH (09:21)
[2017-07-16] MEDS: FOLIC ACID 1 MG TAB PO SCH (09:21)
[2017-07-16] MEDS: DULoxetine 60 MG CAP PO SCH (09:21)
[2017-07-16] MEDS: THIAMINE HCL 500 MG in NS 250 ML IV SCH (09:21)
[2017-07-16 09:37] VITALS: RESP 18
--- NOTE | 2017-07-16 11:33 | ASMTCMCOM ---
CM Note CM Note Notes: Patient did not remember meeting this CM yesterday and we spent 30 mins together talking about ETOH consumption and possible need for SNF Rehab. Therapies recommending SNF- talked to patient,he is interested in [facility], referral sent. Patient reports that his son is coming from [place] this afternoon. Date Signed: 07/16/2017 11:33 AM Electronically Signed By:Lula Castorena LCSW
--- NOTE | 2017-07-16 14:45 | HOSPPROG ---
Hospitalist Progress Note Assessment/Plan: # acute encephalopathy - suspect seizure + etOH w/d given tongue lacerations # etOH abuse and w/d - cont sched librium today, likely dc tomorrow - cont thiamine # suspected seizure - start gabapentin for pain and seizure ppx # chronic pain - on baclofen and cymbalta # hypoNa - hypovolemic - better # mild hepatitis - d/t etOH # elev trop - no CP; baseline ECG abnormal - consider stress as inpatient # elev CK - mild # htn - metop, norvasc, # sepsis, ruled out - i don't think he had sepsis # dvt ppx - lovenox Subjective: conversant; ok with mr salguero if i speak with his daughter Objective: Vital Signs Temp Pulse Resp BP Pulse Ox 37.1 C 99 18 159/87 H 98 07/16/17 08:00 07/16/17 08:00 07/16/17 08:00 07/16/17 11:55 07/16/17 08:00 Laboratory Results 07/15/17 04:30 07/16/17 06:00 07/15/17 07/16/17 07/17/17 05:59 05:59 05:59 Intake Total 2046 2610 Output Total 700 3250 400 Balance 1346 -640 -400 PT 13.4 SEC (12.0-15.0) 07/15/17 04:30 INR 1.00 (0.83-1.16) 07/15/17 04:30 - Physical Exam Constitutional: no apparent distress, appears nourished Ears, Nose, Mouth, Throat: other (bilat tongue lacerations) Cardiovascular: regular rate and rhythym, no murmur, rub, or gallop Respiratory: no respiratory distress, no rales or rhonchi Gastrointestinal: normoactive bowel sounds, no palpable masses ICD10 Worksheet Patient Problems: Problems Problem Status Onset Cervical spondylosis with myelopathy Acute Alcohol abuse Acute Altered mental status Acute
[2017-07-16] MEDS: GABAPENTIN 100 MG CAP PO SCH ×2 (15:32→23:58)
--- NOTE | 2017-07-16 17:09 | ASMTCMCOM ---
CM Note CM Note Notes: Talked with Shira, patient's daughter. She reports that she would like her father to go to a rehab before returning home. CM and Therapies have been encouraging patient to go to [facility]-referral sent. Patient has been reluctant to go to SNF. This CM suggested that option#2 might be for patient to return home with and [facility] until they arrive. She and brother won't be able to come to [place] until the end of the week and their plan is to find a living environment more suitable and sustainable for patient. She reports that patient does spend much of his time drinking and doesn't think he has a problem. Shira would like to be contacted Saturday about the discharge plan [phone]. Date Signed: 07/16/2017 05:08 PM Electronically Signed By:Lula Castorena LCSW
[2017-07-17] MEDS: ACETAMINOPHEN 325 MG TAB PO PRN
[2017-07-17 04:53] LABS: PLATELET COUNT 347 10^3/uL (150-400)
[2017-07-17] MEDS ORDERED: MAGNESIUM SULF 1 GM/DEXTROSE 100 ML IV ONE (07:45)
[2017-07-17] MEDS ORDERED: POTASSIUM CL 10 MEQ TAB PO ONE (07:48)
[2017-07-17] MEDS: METOPROLOL TARTRATE 50 MG TAB PO SCH (10:05)
[2017-07-17] MEDS: MULTIVITAMINS 1 EACH TAB PO SCH (10:05)
[2017-07-17] MEDS: GABAPENTIN 100 MG CAP PO SCH ×2 (10:05→15:41)
[2017-07-17] MEDS: FOLIC ACID 1 MG TAB PO SCH (10:06)
[2017-07-17] MEDS: DULoxetine 60 MG CAP PO SCH (10:06)
[2017-07-17] MEDS: SPIRONOLACTONE 25 MG TAB PO SCH (10:06)
[2017-07-17] MEDS: ENOXAPARIN 40 MG/0.4 ML SYR SC SCH (10:06)
--- NOTE | 2017-07-17 11:38 | PDIAF ---
- Diagnosis Diagnosis: Alcohol withdrawal Code Status: Full Code - Medication Management Discharge Medications: Medications to Continue on Transfer DULoxetine [Cymbalta 60 MG (*)] 60 mg PO DAILY 05/27/13 [Last Taken 05/27/13] Spironolactone [Aldactone 25 MG (*)] 25 mg PO DAILY 09/07/16 [Last Taken Unknown ] Metoprolol Tartrate 50 mg PO DAILY 12/24/16 [Last Taken Unknown] Baclofen [Baclofen 20 mg (*)] 20 mg PO TID PRN 07/14/17 [Last Taken Unknown] Promethazine HCl [Phenergan 25mg (*)] 25 mg PO Q4-6PRN PRN 07/14/17 [Last Taken Unknown] amLODIPine BESYLATE [Norvasc 2.5 mg (*)] 2.5 mg PO DAILY 07/15/17 [Last Taken Unknown] Gabapentin [Neurontin 100 MG (*)] 100 mg PO TID cap 07/17/17 [Last Taken Unknown] Discharge Medications: Refer to the Discharge Home Medication list for PRN reason. - Orders Services needed: Registered Nurse, Certified Senior Electrical Project Manager, Physical Therapy, Occupational Therapy Diet Recommendation: no restrictions on diet Diet Texture: Regular Texture Diet, Thin Liquids Activity/Weight Bearing Restrictions: Do not do anything that could endanger you in case you have another seizure including swimming, bathing alone, driving , operating heavy machinery or working at heights until cleared by a neurologist. - Follow Up Care Current Providers and Referrals: Patient,NotPresent [Unknown] - As per Instructions Real Lugo MD [Medical Doctor] - follow up in 2 weeks
--- NOTE | 2017-07-17 11:46 | PDIAF ---
- Diagnosis Diagnosis: Alcohol withdrawal Code Status: Full Code - Medication Management Discharge Medications: Medications to Continue on Transfer DULoxetine [Cymbalta 60 MG (*)] 60 mg PO DAILY 05/27/13 [Last Taken 05/27/13] Spironolactone [Aldactone 25 MG (*)] 25 mg PO DAILY 09/07/16 [Last Taken Unknown ] Metoprolol Tartrate 50 mg PO DAILY 12/24/16 [Last Taken Unknown] Baclofen [Baclofen 20 mg (*)] 20 mg PO TID PRN 07/14/17 [Last Taken Unknown] Promethazine HCl [Phenergan 25mg (*)] 25 mg PO Q4-6PRN PRN 07/14/17 [Last Taken Unknown] amLODIPine BESYLATE [Norvasc 2.5 mg (*)] 2.5 mg PO DAILY 07/15/17 [Last Taken Unknown] Aspirin [Aspirin 81mg (*)] 81 mg PO DAILY #30 tab 07/17/17 [Last Taken Unknown] Gabapentin [Neurontin 100 MG (*)] 100 mg PO TID cap 07/17/17 [Last Taken Unknown] Discharge Medications: Refer to the Discharge Home Medication list for PRN reason. - Orders Services needed: Registered Nurse, Certified Editorial Clerk, Physical Therapy, Occupational Therapy Diet Recommendation: no restrictions on diet Diet Texture: Regular Texture Diet, Thin Liquids Activity/Weight Bearing Restrictions: Do not do anything that could endanger you in case you have another seizure including swimming, bathing alone, driving , operating heavy machinery or working at heights until cleared by a neurologist. - Follow Up Care Current Providers and Referrals: Patient,NotPresent [Unknown] - As per Instructions Real Lugo MD [Medical Doctor] - follow up in 2 weeks
[2017-07-17] MEDS: THIAMINE HCL 500 MG in NS 250 ML IV SCH (11:54)
--- NOTE | 2017-07-17 11:59 | GDS ---
[f rep st] DISCHARGE SUMMARY DIAGNOSES: 1. Acute encephalopathy. 2. Alcohol abuse and withdrawal. 3. Likely seizure. 4. Chronic pain. 5. Hyponatremia. 6. Mild hepatitis and hepatic steatosis. 7. Elevated troponin with no chest pain. 8. Hypertension. HOSPITAL COURSE: This is a 72-year-old man admitted unresponsive. I suspect that he had a seizure g iven his significant alcohol use, tongue bite, and negative alcohol level on admission. He was treat ed for alcohol abuse and withdrawal with benzodiazepines. He is significantly improved. I have star tanya him on gabapentin for seizure prophylaxis as well as his chronic pain. He had mild elevation in his troponin with no chest pain. I think that this is likely demand. He had a small episode of brig ht red blood per rectum, which I suspect is hemorrhoids. He had no fall in his hemoglobin. I have encouraged him very strongly to stop drinking entirely. I have discussed this with his daught er, as well, who is in agreement with this. She and his son are going to come down later this week. I have offered him resources; although, he is not really sure exactly what will work best for him. FOLLOWUP: 1. Dr. Lugo in 2 weeks with Neurology for followup of suspected seizure. 2. Cardiology or primary care given his mild troponin elevation with a peak at 0.1. DISPOSITION: Discharged to retirement facility for ongoing care. BILLING: I spent more than 30 minutes on the day of discharge coordinating care. /[id number]/MODL
[2017-07-17 14:28] VITALS: BP 155/90; PULSE 81; TEMP 98; O2SAT 96
[2017-07-18] MEDS ORDERED: THIAMINE HCL 100 MG TAB PO SCH (09:00)
--- NOTE | 2017-07-19 15:01 | ASDISCHSUM ---
Discharge Information Plan Status:SNF Medically Cleared to Leave: Discharge Date:07/17/2017 03:53 PM CM D/C Disposition:Custodial Facility ADT D/C Disposition:Custodial Facility Projected Discharge Date:07/17/2017 11:00 AM Transportation at D/C:Wheelchair Van Discharge Delay Reason: Follow-Up Date:07/17/2017 11:00 AM Discharge Slot: Final Diagnosis:Fall: head and tongue laceration Placement Information Referral Type:*Half-Way/SNF Referral ID:[id number] Provider Name:[facility] Address 1:[address] Address 2: City:[place] Selection Factors: State:[place] Patient Contact Information Contact Name:INDIRA Relationship:Daughter Address: Work Phone: City: [facility] Phone: State/Zip Code: Email: Financial Information Financial Class:Medicare Primary Plan Desc:MEDICARE INPATIENT Primary Plan Number:[id number] Secondary Plan Desc:AARP/MDR SUPPLEMENT Secondary Plan Number:[id number] Assessment Information [facility] CM Progress Note CM Note CM Note Notes: 72 year old male fell and hit his head. Admitted for AMS, lacerations on tongue and forehead. Neighbor found him down at home. Patient reports drinking 3 margaritas a day has never had sz. Has a daughter and son, one in [place] and the other in [place]. Patient doesn't feel he has a drinking problem. Has a hx of 4 spinal surgeries, rotator cuff surgeries, hip surgery, HTN, BPH, AMBER-cpap, Depression. Patient denies back pain and reports feeling good emotionally. He lives in a 1 level home and states that he "doesn't go out much."Therapies recommending SNF Rehab. Date Signed: 07/15/2017 02:38 PM Electronically Signed By:Lula Castorena LCSW [facility] Progress Note CM Note CM Note Notes: Patient did not remember meeting this CM yesterday and we spent 30 mins together talking about ETOH consumption and possible need for SNF Rehab. Therapies recommending SNF- talked to patient,he is interested in [facility], referral sent. Patient reports that his son is coming from [place] this afternoon. Date Signed: 07/16/2017 11:33 AM Electronically Signed By:Lula Castorena LCSW [facility] Progress Note CM Note CM Note Notes: Talked with Shira, patient's daughter. She reports that she would like her father to go to a rehab before returning home. CM and Therapies have been encouraging patient to go to [facility]-referral sent. Patient has been reluctant to go to SNF. This CM suggested that option#2 might be for patient to return home with and [facility] until they arrive. She and brother won't be able to come to [place] until the end of the week and their plan is to find a living environment more suitable and sustainable for patient. She reports that patient does spend much of his time drinking and doesn't think he has a problem. Shira would like to be contacted Saturday about the discharge plan [phone]. Date Signed: 07/16/2017 05:08 PM Electronically Signed By:uLla Castorena LCSW Case Management Discharge Plan Note Case Management Discharge Discharge Order Complete? Answers: Yes Patient to Obtain Answers: Other Notes: SNF Medications Transportation Arranged Answers: Other Notes: [facility] Transport will Pick (Date 07/17/2017 03:00 AM & Time) Faxed Final Orders Answers: Yes Agency/Facility Transfer Answers: Yes Report Printed & Faxed to Receiving Agency Family Notified Answers: Yes Date Signed: 07/17/2017 12:41 PM Electronically Signed By:Claudette Hughes LCSW Intervention Information Intervention Type:*IM-Signed Date of Service:07/17/2017 02:59 PM Patient Type:Inpatient Staff Member:Elba Lambert Hours: Discipline: Severity: Comment:
== END 2017-07-17 15:53 | DRG 897 ==
LOC: EDUNIT# → F2N 21:09 → F1N 07-16 18:26
PROVIDERS: ADMIT Hospitalist; ATTEND Student in an Organized Health Care Education/Training Program
DX: F10.239 Alcohol dependence with withdrawal, unspecified (principal); R56.9 Unspecified convulsions; G89.29 Other chronic pain; F11.20 Opioid dependence, uncomplicated; E87.1 Hypo-osmolality and hyponatremia; K62.5 Hemorrhage of anus and rectum; K70.10 Alcoholic hepatitis without ascites; I10 Essential (primary) hypertension; R79.89 Other specified abnormal findings of blood chemistry; K76.0 Fatty (change of) liver, not elsewhere classified; G47.33 Obstructive sleep apnea (adult) (pediatric); E87.6 Hypokalemia; Z98.1 Arthrodesis status; N40.0 Benign prostatic hyperplasia without lower urinary tract symptoms; E66.9 Obesity, unspecified; Z68.36 Body mass index [BMI] 36.0-36.9, adult
CPT/HCPCS: 80305; 92507-GN; 92523-GN; 92610-GN; 96374; 97110-GP; 97116-GP; 97162-GP; 97166-GO; 97535-GO; G0480; G8978-GP-CK; G8979-GP-CI; G8987-GO-CK; G8988-GO-CI; G8989-GO-CJ; G8996-GN-CI; G8997-GN-CI; G8998-GN-CI; G9165-GN-CJ; G9166-GN-CI; G9168-GO-CI; G9169-GN-CI; J0610; J0692; J1650; J2060; J3411; J3475; J3480; Q9967

== ENCOUNTER → 2017-09-03 | Outpatient (CLI) | payer OTHER, MEDICARE | LOC: CIMAGING 12:17 | PROVIDERS: ATTEND Internal Medicine | DX: M18.0 Bilateral primary osteoarthritis of first carpometacarpal joints (principal) | CPT/HCPCS: 73120-PO ==

== ENCOUNTER 2018-09-14 20:09 | Inpatient (IN) | payer OTHER, MEDICARE ==
--- NOTE | 2018-09-14 20:17 | EDPHY ---
H & P Time Seen by Provider: 09/14/18 20:16 - Personal History Tetanus Vaccine Date: ADM 09/14/13 - Medical/Surgical History Hx Asthma: No Hx Chronic Respiratory Disease: No Hx Diabetes: No Hx Cardiac Disease: No Hx Renal Disease: No Hx Cirrhosis: No Hx Alcoholism: No Hx HIV/AIDS: No Hx Splenectomy or Spleen Trauma: No Other PMH: medical- 2L O2 hs, obesity, chronic back pain. surgical- 2R rotator surg; bilat meniscus, bilat elbow tendon rep, spinal stenosis, back surgery, lumbar fusion, prostatectomy, wt gain from surgeries, hip surg 12/12/16; AMBER; hypertension - Social History Smoking Status: Never smoked Constitutional: Initial Vital Signs Temperature (C) 36.6 C 09/14/18 20:15 Heart Rate 91 09/14/18 20:15 Respiratory Rate 22 H 09/14/18 20:15 Blood Pressure 160/94 H 09/14/18 20:15 O2 Sat (%) 96 09/14/18 20:15 O2 Delivery Mode Room Air Allergies/Adverse Reactions: Penicillins Allergy (Intermediate, Verified 09/14/18 20:33) Hives Home Medications: Medication Instructions Recorded DULoxetine [Cymbalta 60 MG (*)] 60 mg PO DAILY 05/27/13 Spironolactone [Aldactone 25 MG 25 mg PO DAILY 09/07/16 (*)] Metoprolol Tartrate 50 mg PO DAILY 12/24/16 amLODIPine BESYLATE [Norvasc 2.5 2.5 mg PO DAILY 07/15/17 mg (*)] Aspirin [Aspirin 81mg (*)] 81 mg PO DAILY #30 tab 07/17/17 Cyclobenzaprine 01/22/18 Oxycodone HCl 01/22/18 Medical Decision Making ED Course/Re-evaluation: CHIEF COMPLAINT: Found down HISTORY OF PRESENT ILLNESS: The patient is a 73 y/o male with a history of alcoholism with alcohol withdrawal seizure, chronic back pain requiring surgery arriving via EMS after he was found down. The patient reports that he drinks 8-10 drinks daily and had 6 drinks today. Today, someone found the patient down in front of his recliner incontinent of stool. After waking up he stated that he does not think he had a withdrawal seizure. He also does not think he blacked out due to drinking as he never blacks out when he drinks. No fever, headache, body aches, lightheadedness , chest pain, heart palpitations, shortness of breath, cough, abdominal pain, urinary complaints, numbness, paresthesias. REVIEW OF SYSTEMS: A comprehensive 10 system review of systems is otherwise negative aside from elements mentioned in the history of present illness and medical decision making. PHYSICAL EXAM: HR, BP, O2 Sat, RR. Temp noted General Appearance: Alert, well hydrated, appropriate, and non-toxic appearing. Head: Atraumatic without scalp tenderness or obvious injury Eyes: Pupils equal, round, reactive to light and accommodation, EOMI, no trauma , no injection. Ears: Clear bilaterally, no perforation, normal landmarks Nose: Atraumatic, no rhinorrhea, clear. Throat: There is no erythema or exudates, no lesions, normal tonsils, mucus membranes moist. Neck: Supple, 2+ carotid upstroke, nontender, no lymphadenopathy. Respiratory: No retractions, no distress, no wheezes, and no accessory muscle use. Lungs are clear to auscultation bilaterally. Cardiovascular: Regular rate and rhythm, no murmurs, rubs, or gallops. Bilateral carotid, radial, dorsalis pedis, and posterior tibial pulses intact. Good capillary refill all extremities. Gastrointestinal: Abdomen is soft, nontender, non-distended, no masses, no rebound, no guarding, no peritoneal signs. Musculoskeletal: Normal active ROM of all extremities, atraumatic. Neurological: Alert, appropriate, and interactive. The patient has normal DTRs and non-focal cranial nerves, motor, sensory, and cerebellar exam. Skin: No rashes, good turgor, no nodules on palpation. Past medical history: Alcoholism, hypertension, obesity, chronic back pain, spinal stenosis, supplemental oxygen, alcohol withdrawal seizures Past surgical history: Lumbar fusion, prostatectomy, hip surgery, shoulder surgery Family history: Denies Social history: Lives in [place], single, retired DIAGNOSTICS/PROCEDURES/CRITICAL CARE TIME: EKG: The 12 lead EKG was interpreted by myself as sinus rhythm with a rate of 88. See hard copy and/or "tracemaster" electronic copy for interpretation. DIFFERENTIAL DIAGNOSIS: The differential diagnosis for the patient's syncope included but was not limited to vasovagal syncope, arrhythmia, dehydration, cardiogenic causes, neurogenic causes, and blood loss. MEDICAL DECISION MAKING: The patient is a 73 y/o male with a history of alcoholism with alcohol withdrawal seizure, chronic back pain requiring surgery arriving via EMS after he was found down. The patient reports that he drinks 8-10 drinks daily and had 6 drinks today. Today, someone found the patient down in front of his recliner incontinent of stool. There is no evidence of an alcohol withdrawal seizure and I suspect this patient had a syncopal episode. The patient has a normal physical exam. Labs and EKG ordered. 2039: I interpreted patient's EKG as sinus rhythm with a rate of 88. 2047: I consulted with Dr. Naranjo, hospitalist, who accepts admission of this patient for syncope due to an unknown cause. 2049: Reassessed patient and discussed plan for admission. Patient is comfortable with this plan. Patient's alcohol level is 242 and his liver enzymes are elevated consistent with chronic alcoholism. - Data Points Laboratory Results: Laboratory Results 09/14/18 20:25 09/14/18 20:25 09/14/18 09/14/18 09/14/18 20:31 20:25 20:25 WBC 6.23 10^3/uL 10^3/uL (3.80-9.50) RBC 4.77 10^6/uL 10^6/uL (4.40-6.38) Hgb 15.6 g/dL g/dL (13.7-17.5) Hct 42.6 % % (40.0-51.0) MCV 89.3 fL fL (81.5-99.8) MCH 32.7 pg pg (27.9-34.1) MCHC 36.6 g/dL g/dL (32.4-36.7) RDW 13.9 % % (11.5-15.2) Plt Count 329 10^3/uL 10^3/uL (150-400) MPV 8.5 fL L fL (8.7-11.7) Neut % (Auto) 64.1 % % (39.3-74.2) Lymph % (Auto) 20.2 % % (15.0-45.0) [place] % (Auto) 11.2 % % (4.5-13.0) Eos % (Auto) 1.8 % % (0.6-7.6) Baso % (Auto) 0.6 % % (0.3-1.7) Nucleat RBC Rel Count 0.0 % % (0.0-0.2) Absolute Neuts (auto) 3.99 10^3/uL 10^3/uL (1.70-6.50) Absolute Lymphs (auto) 1.26 10^3/uL 10^3/uL (1.00-3.00) Absolute Monos (auto) 0.70 10^3/uL 10^3/uL (0.30-0.80) Absolute Eos (auto) 0.11 10^3/uL 10^3/uL (0.03-0.40) Absolute Basos (auto) 0.04 10^3/uL 10^3/uL (0.02-0.10) Absolute Nucleated RBC 0.00 10^3/uL 10^3/uL (0-0.01) Immature Gran % 2.1 % H % (0.0-1.1) Immature Gran # 0.13 10^3/uL H 10^3/uL (0.00-0.10) Sodium 132 mEq/L L mEq/L (135-145) Potassium 4.2 mEq/L mEq/L (3.5-5.2) Chloride 93 mEq/L L mEq/L (97-110) Carbon Dioxide 24 mEq/l mEq/l (22-31) Anion Gap 15 mEq/L H mEq/L (6-14) BUN 7 mg/dL mg/dL (7-23) Creatinine 0.7 mg/dL mg/dL (0.7-1.3) Estimated GFR > 60 Glucose 112 mg/dL H mg/dL (70-100) Calcium 9.7 mg/dL mg/dL (8.5-10.4) Total Bilirubin 0.8 mg/dL mg/dL (0.1-1.4) Conjugated Bilirubin 0.3 mg/dL mg/dL (0.0-0.5) Unconjugated Bilirubin 0.5 mg/dL mg/dL (0.0-1.1) AST 193 IU/L H IU/L (17-59) ALT 204 IU/L H IU/L (21-72) Alkaline Phosphatase 175 IU/L H IU/L (38-126) POC Troponin I 0.01 ng/mL ng/mL (0.00-0.08) NT-Pro-B Natriuret Pep Pending Total Protein 7.5 g/dL g/dL (6.3-8.2) Albumin 4.5 g/dL g/dL (3.5-5.0) Lipase 131 IU/L IU/L (23-300) Ethyl Alcohol 242 mg/dL H mg/dL (0-10) Point of Care Test Results: Chemistry 09/14/18 20:31 POC Troponin I 0.01 ng/mL ng/mL (0.00-0.08) Departure - Departure Disposition: [facility] Inpatient Acute Clinical Impression: Elevated LFTs, Alcohol abuse Syncope Qualifiers: Syncope type: unspecified Qualified Code(s): R55 - Syncope and collapse Condition: Fair Referrals: Patient,NotPresent [Primary Care Provider] - As per Instructions Report Scribed for: Prabhjot Barcenas Report Scribed by: Dora Lancaster Date of Report: 09/14/18 Time of Report: 20:17
[2018-09-14 20:40] LABS: PLATELET COUNT 329 10^3/uL (150-400)
--- NOTE | 2018-09-14 20:40 | CPEKG ---
Test Reason : OPEN Blood Pressure : / mmHG Vent. Rate : 088 BPM Atrial Rate : 088 BPM P-R Int : 165 ms QRS Dur : 103 ms QT Int : 404 ms P-R-T Axes : 053 036 034 degrees QTc Int : 489 ms Sinus rhythm Borderline prolonged QT interval Confirmed by Prabhjot Barcenas ([id number]) on 09/14/2018 8:39:52 PM Referred By: Prabhjot Barcenas Confirmed By:Prabhjot Barcenas
[2018-09-14] MEDS ORDERED: oxyCODONE IR 15 MG TAB PO ONE (20:59)
[2018-09-14] MEDS ORDERED: oxyCODONE IR 5 MG TAB ONE (21:01)
[2018-09-14] MEDS ORDERED: ONDANSETRON DISINTEGRATING 4 MG TAB PO PRN (21:16)
[2018-09-14] MEDS ORDERED: ONDANSETRON 4 MG/2 ML VIAL IVP PRN (21:16)
[2018-09-14] MEDS ORDERED: NS 1,000 ML IV SCH (21:30)
--- NOTE | 2018-09-14 22:07 | GHP ---
[f rep st] HISTORY AND PHYSICAL DATE OF ADMISSION: 09/14/2018 HISTORY OF PRESENT ILLNESS: The patient is a pleasant 73-year-old gentleman with a history of alcoho lism, low back pain, with admission to this hospital for being found down, who woke up this morning a t the foot of his Lazy Boy. He was incontinent of stool. This is a new problem for him. He had had a fair amount to drink, but by his family, not particularly much. He takes Flexeril and oxycodone a s well. He took a half of an oxycodone today because it seems like he had run out of them. He is du e to get more tomorrow. He does not have apparent seizure activity. He eats poorly, had a yogurt to day. He is uncertain how much alcohol he had. He has no cardiac problems which he is aware. He has not had chest pain, anginal-type symptoms or CHF. He does have some lower extremity edema. REVIEW OF SYSTEMS: Complete 10-point review of systems conducted and negative except as noted in the HPI. PAST MEDICAL HISTORY: 1. Alcohol dependence with a history of alcohol withdrawal seizure. 2. History of admission being found down. 3. Hypertension. 4. BPH. 5. AMBER on CPAP. 6. Obesity. 7. Chronic pain. 8. Chronic narcotic therapy. 9. Spinal stenosis. 10. Decreased right eye vision related to retinal surgery. PAST SURGICAL HISTORY: He had a prostatectomy, hip replacement, retinal surgery, bilateral meniscus arthroscopy, lumbar fusion x3, cervical spine surgeries. SOCIAL HISTORY: Lifelong nonsmoker. Denies drugs of abuse, but he does take prescription narcotics and sedatives. He lives alone. 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 He is a DNR. ALLERGIES: Penicillins. HOME MEDICATIONS: Amlodipine, aspirin, vitamin D3, vitamin B12, Flexeril, duloxetine, glucosamine, m etoprolol, oxycodone, spironolactone. PHYSICAL EXAMINATION: PRESENTING VITALS: Temp 36.6, blood pressure 160/94, pulse 91, breathing 22 t imes a minute, 93% on room air. GENERAL: No acute distress. HEENT: Sclerae anicteric. Oropharynx clear. Mucous membranes are moist. NECK: Supple. No lymphadenopathy or JVD. LUNGS: Clear to au scultation bilaterally. HEART: S1, S2 without murmurs. ABDOMEN: Soft, nontender, nondistended wit hout rebound or guarding. LOWER EXTREMITIES: Show trace edema bilaterally. SKIN: Without rash. N EUROLOGIC: The patient is ambulating around the room. He is a little bit unsteady, but he is alert and conversant, remembers me or he is confabulating. LABS: White count 6, hematocrit 43, platelets are 329,000. Historically, coags are normal. Sodium 132, potassium 4.2, chloride 93, bicarb 24, BUN 7, creatinine 0.7, glucose 112. Bilirubin 0.8, AST 1 93, ALT 204. These are high liver tests for him, although he has a chronically elevated transaminase . Nheij-ly-rqrr troponin 0.01. Alcohol level is 242. EKG interpreted by me shows sinus at 88 with normal axis and intervals, wavy baseline. No ST or T-wave changes. I have discussed the case with Chris Barcenas. ASSESSMENT AND PLAN: A 73-year-old gentle with alcoholism, found down, incontinent of stool. 1. Found down. This is not clearly seizure. It is not clearly alcohol related. He has several pre sentations to this hospital with being amnestic as to what happened in the setting of alcohol use, wh ich is certainly going on here, as well as prescription drug use. I think it is reasonable to follow him on telemetry and repeat a troponin. I have a low suspicion for acute coronary syndrome on the b asis of absence of chest pain and relatively normal EKG. Seizure is considered, and I feel it is les s like in the setting that he is intoxicated. Will follow him over night. 2. Elevated transaminases. This is secondary to alcohol. 3. Lower extremity edema. This is probably abdominal obesity. We will hold off on echocardiogram a t this time. 4. Prescription drug use. This is a cocktail of Flexeril, oxycodone and alcohol that really puts hi m at high risk for falls. I would use caution going forward with muscle relaxants. I will have PT s ee him. 5. Back pain. Will continue his narcotic prescriptions. Question narcotic withdrawal. The patient could have gotten up to go to the bathroom and had a diarrheal episode as part of withdrawal. He do es not appear to be in withdrawal at this point in time, although he just got some oxycodone. Russ barlow. 6. Prophylaxis. Low molecular weight heparin indicated. DISPOSITION: Inpatient status. I think it will take greater than 2 midnights to sort out this genthorace toney's care. /[id number]/MODL
[2018-09-14] MEDS ORDERED: FLUMAZENIL 0.5 MG/5 ML MDV IVP PRN (23:52)
[2018-09-15] MEDS: LORazepam 2 MG/ML INJ IVP PRN ×7 (00:19→23:41)
[2018-09-15] MEDS ORDERED: NS 1,000 ML IV ONE (04:03)
[2018-09-15] MEDS: TEMAZEPAM 15 MG CAP PO PRN ×2 (04:09→23:42)
[2018-09-15 04:50] LABS: PLATELET COUNT 288 10^3/uL (150-400)
[2018-09-15] MEDS ORDERED: chlordiazePOXIDE 25 MG CAP PO ONE (04:56)
[2018-09-15] MEDS: oxyCODONE IR 15 MG TAB PO SCH ×4 (05:02→20:48)
--- NOTE | 2018-09-15 06:40 | HOSPPROG ---
Hospitalist Progress Note Assessment/Plan: XC: Patient developed signs of escalating alcohol withdrawal overnight. I have started CIWA protocol and provided additional fluids and Librium dose. He is calm and cooperative currently but may require transfer to higher level of care depending on trajectory over the next several hours. Objective: Vital Signs Temp Pulse Resp BP Pulse Ox 36.7 C 126 H 20 172/92 H 94 09/15/18 00:30 09/15/18 04:27 09/15/18 04:27 09/15/18 04:27 09/15/18 04:27 Laboratory Results 09/15/18 04:36 09/15/18 04:36 09/14/18 09/15/18 09/16/18 05:59 05:59 05:59 Intake Total 700 1592 Balance 700 1592 ICD10 Worksheet Patient Problems: Problems Problem Status Onset Cervical spondylosis with myelopathy Acute Alcohol abuse Acute Altered mental status Acute Syncope Acute Elevated LFTs Acute
[2018-09-15] MEDS: METOPROLOL TARTRATE 50 MG TAB PO SCH ×2 (06:45→10:48)
--- NOTE | 2018-09-15 09:31 | PDMN ---
Medical Necessity [place] [facility] [place] Sub[place]-Related Disorders, 2 days: 73 yo found down at home and incontinent of stool, pt w/ no memory what happened. Pt w/ sig hx etoh abuse and prescription drug use w/ hx etoh w/d seizures. Unclear etiology if seizure or etoh related vs. cardiac etiology. Overnight pt developed s/sx etoh w/d w/ tremors, anxiety, tachy, and visual disurbances, CIWA protocol started, IVF, IV Ativan, cont tele monitoring. IP status.
[2018-09-15] MEDS: CYANO/VITAMIN B12 1000 MCG TAB PO SCH (10:47)
[2018-09-15] MEDS: SPIRONOLACTONE 25 MG TAB PO SCH (10:47)
[2018-09-15] MEDS: FOLIC ACID 1 MG TAB PO SCH (10:47)
[2018-09-15] MEDS: CHOLECALCIFEROL VIT D3 1,000 UNITS TAB PO SCH (10:47)
[2018-09-15] MEDS: ASPIRIN 81 MG CHEWABLE TAB PO SCH (10:48)
[2018-09-15] MEDS: CYCLOBENZAPRINE 10 MG TAB PO SCH ×2 (10:48→20:48)
[2018-09-15] MEDS: DULoxetine 60 MG CAP PO SCH (10:48)
[2018-09-15] MEDS: MULTIVITAMINS 1 EACH TAB PO SCH (10:48)
[2018-09-15] MEDS: ENOXAPARIN 40 MG/0.4 ML SYR SC SCH (10:48)
[2018-09-15] MEDS: GLUCOSAMINE SULF 500 MG CAP PO SCH (10:52)
--- NOTE | 2018-09-15 12:04 | HOSPPROG ---
Hospitalist Progress Note Assessment/Plan: DIAGNOSES: * Acute alcohol withdrawal new onset today * Found down, uncertain etiology but suspect due to alcohol intoxication as well as medications as a likely cause * Tachycardia and hypertension are likely due to alcohol withdrawal but there may be other related issues * Elevated hepatic transaminases, ratio not typical of alcohol etiology * Alcoholism and suspected thiamine deficiency * Chronic pain syndrome with chronic prescribed narcotics * Chronic Back pain, status post multiple surgeries, multiple steroid injections * History hypertension * History right visual loss PLANS: * Continue CIWA protocol and follow closely, including seizure prophylaxis * Check hepatitis serologies and liver ultrasound * Continue equipment monitor phototypesetting * IV hydration * Continue follow electrolytes replaced as needed * Social work evaluation for subsequent outpatient management of alcohol In addition to usual rounds for alcohol withdrawal and pain management, I had a 30 minute discussion with him about his alcoholism, his social isolation, his mental health, and his lack of physical fitness overall. He has had 1 prior 2 year period of sobriety but has been drinking otherwise for quite some time. He understands that alcohol is impeding his ability to recover from his back issues and to live and otherwise satisfying and comfortable life. He would like very much to become sober and stay that way. I talked to him about a variety of possible resources for dealing with alcohol and we agreed to have our social workers talked with him further about all of the potential options available to him after he leaves the hospital here. Total bedside time today approximately 65 min during 2 visits SUBJECTIVE: Main complaint are 2, anxiety from withdrawal, and his chronic back pain which is the same as usual No acute radicular or neurologic dysfunction symptoms He has been drinking heavily, has a prior history of alcohol withdrawal with seizure 9 months ago and a prior history of 2 years of sobriety in the past. He would like very much to quit drinking and stay sober, and is hoping we can refer him to helpful resources. OBJECTIVE Vitals reviewed: Blood pressure and pulse are improving still both a bit high, no fever CIWA scores: As high as 10 this morning Patient Ambassador, my review: Exam: alert oriented skin warm dry color ok resps not labored lungs clear BSs heart regular abd soft nondistended nontender, bowel sounds present limbs warm, no edema iv site ok Lab data: Again the some hepatic transaminase elevations with ALT greater than AST improved slightly from yesterday, bilirubin remains normal Sodium remains low but stable Negative troponins Stable CBC Objective: Vital Signs Temp Pulse Resp BP Pulse Ox 37.0 C 98 19 141/78 H 96 09/15/18 08:00 09/15/18 10:48 09/15/18 08:00 09/15/18 10:48 09/15/18 08:00 Laboratory Results 09/15/18 04:36 09/15/18 04:36 09/14/18 09/15/18 09/16/18 06:59 06:59 06:59 Intake Total 2292 200 Balance 2292 200 ICD10 Worksheet Patient Problems: Problems Problem Status Onset Alcohol abuse Acute Elevated LFTs Acute Syncope Acute Altered mental status Acute Cervical spondylosis with myelopathy Acute
--- NOTE | 2018-09-15 13:11 | CPEKG ---
Test Reason : OPEN Blood Pressure : / mmHG Vent. Rate : 129 BPM Atrial Rate : 129 BPM P-R Int : 152 ms QRS Dur : 087 ms QT Int : 315 ms P-R-T Axes : 061 040 -30 degrees QTc Int : 462 ms Sinus tachycardia Probable left atrial enlargement Borderline repol abnrm, inferolateral leads Confirmed by Shane Elizondo ([id number]) on 09/15/2018 1:11:40 PM Referred By: Cody Naranjo Confirmed By:Shane Elizondo
[2018-09-15 15:53] LABS: HEPATITIS B CORE AB TOTAL NEGATIVE (NEGATIVE); HEPATITIS C ANTIBODY TOTAL NEGATIVE (NEGATIVE)
--- NOTE | 2018-09-15 17:19 | ASMTCMCOM ---
CM Note CM Note Notes: Spoke with pt in the room. Pt woke up after passing out on the floor and called 911. Pt lives alone. Pt has history of chronic pain, narcotic dependence, ETOH abuse and multiple orthopedic surgeries. He attributes ETOH abuse to decrease in opioid dosage to cope with chronic pain. PT is recommending HHC and OT is recommending SNF. Pt prefers Home Care and has a history with [facility]. Referral sent to [facility]. Pt is interested in jail alcohol recovery and was given ETOH recovery resources including a list of inpatient addiction rehab programs that take private insurance and Medicare. Pt stated he would likely follow up with this at home as he does not have reading glasses in the hospital and CM asked [employer] community development worker to try to locate some for him. CM to follow. D/C Plan: [facility] pending acceptance Date Signed: 09/15/2018 04:25 PM Electronically Signed By:Sihra Andino
[2018-09-16] MEDS: LORazepam 2 MG/ML INJ IVP PRN ×3 (03:56→16:17)
[2018-09-16] MEDS: oxyCODONE IR 15 MG TAB PO SCH ×4 (05:51→22:18)
[2018-09-16] MEDS: ACETAMINOPHEN 325 MG TAB PO PRN (05:51)
[2018-09-16] MEDS: LIDOCAINE 4%/MENTHOL 1% PATCH TD SCH (09:43)
[2018-09-16] MEDS: ENOXAPARIN 40 MG/0.4 ML SYR SC SCH (09:44)
[2018-09-16] MEDS: SPIRONOLACTONE 25 MG TAB PO SCH (09:45)
[2018-09-16] MEDS: CYCLOBENZAPRINE 10 MG TAB PO SCH ×2 (09:45→22:18)
[2018-09-16] MEDS: DULoxetine 60 MG CAP PO SCH (09:45)
[2018-09-16] MEDS: FOLIC ACID 1 MG TAB PO SCH (09:45)
[2018-09-16] MEDS: ASPIRIN 81 MG CHEWABLE TAB PO SCH (09:45)
[2018-09-16] MEDS: MULTIVITAMINS 1 EACH TAB PO SCH (09:45)
[2018-09-16] MEDS: CHOLECALCIFEROL VIT D3 1,000 UNITS TAB PO SCH (09:45)
[2018-09-16] MEDS: CYANO/VITAMIN B12 1000 MCG TAB PO SCH (09:46)
[2018-09-16] MEDS: METOPROLOL TARTRATE 50 MG TAB PO SCH (10:43)
[2018-09-16] MEDS: GLUCOSAMINE SULF 500 MG CAP PO SCH (10:45)
--- NOTE | 2018-09-16 11:42 | HOSPPROG ---
Hospitalist Progress Note Assessment/Plan: Patient is a 73 y/o male w hx of alcoholism. He was brought to the hospital after being found down. In addition he was incontinent of stool. He is on Flexeril and Oxycodone for chronic back pain. First encounter, chart reviewed. *acute alcohol withdrawal -CIWA *elevated LFT's not consistent w alcohol etiology -ultrasound doesn't show etiology, gallbladder fine -spoke w Dr Cuellar and he will see him *tachycardia and hypertension -due to withdrawal *Chronic pain syndrome with chronic prescribed narcotics -Chronic Back pain, status post multiple surgeries, multiple steroid injections -has pain that is constant -says oxy helps but then asked the nurse to get him a dose, he received a dose and hour ago -will add ibuprofen to his profile *alcohol use and abuse -he is very motivated to quit drinking *gait instability -I watched him ambulate in the room, high risk for falling -suspect he will need a SNF to gain strength to return home, he lives alone -will ask PT and OT to work w him *obesity and has a large abdomen -reviewed w him that his large abdominal girth is affecting his back pain *plan: Dr Cuellar to see, trial of ibuprofen, add gabapentin for back pain Subjective: Patric can't find a comfortable position in bed or in the chair. Objective: Vital Signs Temp Pulse Resp BP Pulse Ox 36.9 C 127 H 20 171/97 H 94 09/16/18 08:00 09/16/18 10:30 09/16/18 08:00 09/16/18 10:30 09/16/18 10:30 Laboratory Results 09/15/18 04:36 09/15/18 04:36 09/15/18 09/16/18 09/17/18 05:59 05:59 05:59 Intake Total 700 1991 Balance 700 1991 - Physical Exam Constitutional: appears nourished, chronically ill appearing, uncomfortable, No not in pain Eyes: PERRL Ears, Nose, Mouth, Throat: hearing normal Cardiovascular: regular rate and rhythym Respiratory: no respiratory distress, reduced air movement Gastrointestinal: normoactive bowel sounds, other (large and round) Skin: warm Musculoskeletal: generalized weakness Neurologic: AAOx3 Psychiatric: interacting appropriately ICD10 Worksheet Patient Problems: Problems Problem Status Onset Alcohol abuse Acute Elevated LFTs Acute Syncope Acute Altered mental status Acute Cervical spondylosis with myelopathy Acute
[2018-09-16] MEDS: IBUPROFEN 600 MG TAB PO PRN ×2 (12:40→22:39)
--- NOTE | 2018-09-16 14:12 | SOAPPROG ---
SOAP Progress Note Assessment/Plan: Assessment:Plan: see full dictated consult I suspect alcohol and fatty liver or med affect as cause of his LFT's Mark Cuellar MD [phone] 09/16/18 14:11 Objective: Vital Signs Temp Pulse Resp BP Pulse Ox 36.8 C 92 20 160/86 H 90 L 09/16/18 12:00 09/16/18 12:00 09/16/18 12:00 09/16/18 12:00 09/16/18 12:00 Laboratory Results 09/15/18 04:36 09/15/18 04:36 09/15/18 09/16/18 09/17/18 05:59 05:59 05:59 Intake Total 700 1991 Balance 700 1991 ICD10 Worksheet Patient Problems: Problems Problem Status Onset Alcohol abuse Acute Elevated LFTs Acute Syncope Acute Altered mental status Acute Cervical spondylosis with myelopathy Acute
--- NOTE | 2018-09-16 15:03 | GCON ---
[f rep st] CONSULTATION DATE OF CONSULTATION: 09/16/2018 REQUESTING HEALTHCARE PROFESSIONAL: Eva Mcgregor. INDICATION FOR CONSULTATION: Elevated liver enzymes. I have been asked by Eva Mcgregor to see the patient in consultation for chief complaint of elevated liver enzymes, which were not consistent with alcohol given the ALT is greater than the AST. The patient is a pleasant 73- year-old man who has a long history of alcoholism as well as some narcotic use. He has been found down previously and was again prior to admission, when he woke up at the foot of his Lazy Boy with stool incontinence. In addition to his Tequila margaritas he takes Flexeril and oxycodone. His liver enzymes have been elevated most of his admissions with only 1 laboratory data over the last year where his liver enzymes are normal. These are reviewed below. His serologic workup does not reveal any evidence of hepatitis A, B or C. His imaging studies do not show any significant lesions in his liver and he likely has fatty liver. He currently is not complaining of any abdominal pain, nausea , vomiting, dysphagia, odynophagia, or early satiety. He says he has had previous colonoscopies, last 1 approximately 10 years ago, as well as an EGD. These are reviewed below. He did also have a previous liver evaluation with negative hepatitis serologies, normal ALTON, normal iron saturation and a normal antismooth muscle antibody, alpha-1 antitrypsin level, ceruloplasmin, and fibromyalgia antibody which were reviewed below. This was actually done by myself in 2007, as were the EGD and colonoscopy. He is now admitted to the hospital with the above, and I am called to help and evaluate his laboratory abnormalities. PAST MEDICAL HISTORY: Alcohol dependence, history of alcohol seizures, hypertension, BPH, history of prostate cancer, obstructive sleep apnea on CPAP, obesity, chronic pain, spinal stenosis. PAST SURGICAL HISTORY: Include prostatectomy, retinal surgeries, bilateral meniscus arthroscopies, lumbar fusions x3, cervical spine surgeries. MEDICATIONS: At home, include amlodipine, aspirin, Flexeril, duloxetine, glucosamine, metoprolol, oxycodone, and Aldactone. In hospital, his medications are Tylenol p.r.n., Norvasc 2.5 mg daily, aspirin 81 mg daily, Librium 10 mg twice daily, vitamin D 1000 units daily, Flexeril 10 mg twice daily, Cymbalta 60 mg daily, Lovenox subcu 40 mg daily, Romazicon p.r.n., folic acid 1 mg daily, gabapentin 100 mg three times daily, glucosamine sulfate 5 mg daily, p.r.n. ibuprofen, p.r.n. lorazepam, metoprolol 50 mg daily, multivitamin, Zofran p.r.n., oxycodone 50 mg p.o. four times daily, spironolactone 25 mg daily, Restoril 50 mg p.o. at bedtime p.r.n., vitamin B1 at 100 mg daily, vitamin B complex 1000 mcg daily. ALLERGIES: Penicillin. SOCIAL HISTORY: He likes to drink Tequila. He does not smoke cigarettes. He lives alone. 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 FAMILY HISTORY: no colon cancer or polyps, father had gallstones REVIEW OF SYSTEMS: A complete review of systems performed is negative other than in the HPI. PHYSICAL EXAM: GENERAL: Well-developed, obese male sitting in his chair. No acute distress. He apologizes for being somewhat slow in his thinking. VITAL SIGNS: Blood pressure 160/86, pulse 92, respirations 20, 90% on room air; previously 94% on room air. EYES: Anicteric. PERRL. EOMI. MOUTH: No lesions. Moist membranes. NECK: Supple. Full range of motion. No JVD. BACK : No spine tenderness. LUNGS: Clear. CARDIAC: S1, S2. Regular rate and rhythm. ABDOMEN: Bowel sounds are normal in pitch and frequency, somewhat distended, soft. No significant tenderness. No rebound or guarding. Difficult to assess hepatosplenomegaly secondary to body habitus. LOWER EXTREMITIES: Trace edema. SKIN: No rashes. NEUROLOGICAL: Alert, oriented x3. Cranial nerves intact. Nonfocal. LABORATORY DATA: From the , sodium 131, potassium 4.4, chloride 95, bicarb 26, BUN 7, creatinine 0.6, glucose 98, calcium 8.1, total bilirubin 1.1, AST 149 , ALT 168, albumin 3.7, total protein 6.4. WBC 9.34, hemoglobin 14.0, hematocrit 39.1, platelet count 288. From the , pro time 13.4, INR 1.0, PTT 27.8. On admission on the , alcohol level was 242. From September 15, hepatitis B core antibody negative. Hepatitis C antibody negative. From December 2016, hepatitis A IgM negative. Hepatitis B surface antigen negative. Hepatitis B core antibody IgM negative. From October 09, 2016, hepatitis BE antibody negative. Hepatitis BE antigen negative. His surface antibody is pending from yesterday. His previous workup from December 01, 2007, antimitochondrial antibody less than 0.1. Antismooth muscle antibody negative. Ceruloplasmin 29.9, albumin trypsin equals 101 which is low end of normal. Iron saturation 37%, ferritin 281, and his ALTON was 0.61 which is below the limit of detection. Abdominal ultrasound performed September 16, 2018, limited study secondary to patient moving and body habitus. Liver has increased echogenicity. There is no intrahepatic biliary dilatation. The right lobe of the liver appears normal. The gallbladder was normal. The pancreas is obscured. Impression: Limited study, fatty liver. Abdominal ultrasound from December 24, 2016, normal size echogenic liver, hepatitis versus hepatic steatosis. No cholelithiasis or biliary dilatation. No ascites. Patent portal vein. EGD and colonoscopy performed December 22, 2007, colonoscopy showed 2 small rectal polyps measuring 2 to 3 mm, otherwise normal colon to the cecum. Pathology of those polyps was hyperplastic. EGD performed same date, revealed normal esophagus, gastric erythema and normal duodenum. CLOtest obtained was negative. Lab tests from December 01, 2007, hepatitis C viral load is undetectable. On August 16, 2017, his AST is 32, and his ALT was 46, and alkaline phosphatase at that point was 93. Other than that, he has had elevated liver enzymes throughout 2018 and 2018. His liver enzymes were normal again in November and December of 2016, and back in 2013. Prior to that, he has had intermittent elevations on almost every blood test. ASSESSMENT: 1. Elevated liver enzymes. 2. History of alcoholism. 3. Obesity and probably fatty liver. 4. Narcotic use. 5. Hypertension. 6. Benign prostatic hypertrophy. 7. Obesity. 8. Obstructive sleep apnea. RECOMMENDATIONS: 1. Check ALTON, ASMA, AMA. 2. Recommend alcohol cessation. 3. Recommend weight loss. 4. Screening colonoscopy is overdue. This can be performed as an outpatient; however, it needs to be performed with anesthesia given his alcoholism and narcotic use. 5. Further recommendations to follow results of above and clinical course. I suspect he has a combination of alcohol and fatty liver causing the ALT and AST elevation. I do not think that he will have any other significant liver disease, although it is possible. Thank you for allowing me to participate in this patient's healthcare. Do not hesitate to call if you have any questions. /[id number]/MODL MTDD
[2018-09-16] MEDS: GABAPENTIN 100 MG CAP PO SCH ×2 (15:50→22:18)
[2018-09-16] MEDS: PATCH REMOVAL 1 EA PATCH TD SCH (21:36)
[2018-09-16] MEDS: TEMAZEPAM 15 MG CAP PO PRN (22:40)
[2018-09-17] MEDS: IBUPROFEN 600 MG TAB PO PRN ×3 (04:25→17:27)
[2018-09-17] MEDS: ACETAMINOPHEN 325 MG TAB PO PRN ×2 (05:29→10:01)
[2018-09-17] MEDS: oxyCODONE IR 15 MG TAB PO SCH ×4 (05:29→20:21)
[2018-09-17] MEDS: LORazepam 2 MG/ML INJ IVP PRN (05:36)
[2018-09-17] MEDS: METOPROLOL TARTRATE 50 MG TAB PO SCH (08:02)
[2018-09-17] MEDS: MULTIVITAMINS 1 EACH TAB PO SCH (08:02)
[2018-09-17] MEDS: ASPIRIN 81 MG CHEWABLE TAB PO SCH (08:02)
[2018-09-17] MEDS: CYCLOBENZAPRINE 10 MG TAB PO SCH ×2 (08:03→20:22)
[2018-09-17] MEDS: FOLIC ACID 1 MG TAB PO SCH (08:04)
[2018-09-17] MEDS: CHOLECALCIFEROL VIT D3 1,000 UNITS TAB PO SCH (08:04)
[2018-09-17] MEDS: SPIRONOLACTONE 25 MG TAB PO SCH (08:04)
[2018-09-17] MEDS: DULoxetine 60 MG CAP PO SCH (08:04)
[2018-09-17] MEDS: GLUCOSAMINE SULF 500 MG CAP PO SCH (08:05)
[2018-09-17] MEDS: CYANO/VITAMIN B12 1000 MCG TAB PO SCH (08:05)
[2018-09-17] MEDS: GABAPENTIN 100 MG CAP PO SCH ×4 (08:05→20:23)
[2018-09-17] MEDS: LIDOCAINE 4%/MENTHOL 1% PATCH TD SCH (08:06)
[2018-09-17] MEDS: ENOXAPARIN 40 MG/0.4 ML SYR SC SCH (08:10)
[2018-09-17] MEDS ORDERED: MAGNESIUM HYDROXIDE 30 ML UDCUP PO PRN (13:32)
[2018-09-17] MEDS ORDERED: LACTULOSE 20 GM/30 ML UDCUP PO PRN (13:32)
[2018-09-17] MEDS ORDERED: BISACODYL 10 MG SUPP PR PRN (13:32)
--- NOTE | 2018-09-17 14:50 | ASMTCMCOM ---
CM Note CM Note Notes: CM spoke to pts son Juan Francisco on the phone (P#: [phone]). Juan Francisco lives in . Pts daughter Shira (P#: [phone]) lives in [place] and had a scheduled visit to [place] for tomorrow. Shira will be in [place] for 4 days. CM met w/ pt for dispo planning. Therapies are recommending SNF. Pt is agreeable to going to SNF. Pt has been to [facility] in the past. [facility] does not have any beds for or Saturday. Anticipate d/c for tomorrow. CM provided pt w/ senior blue book. Pt has chosen [facility]. Referral sent. CM to follow. Plan: [facility] Date Signed: 09/17/2018 02:49 PM Electronically Signed By:LARON Rivero
[2018-09-17] MEDS: POLYETHYLENE GLYCOL 3350 17 GM PKT PO SCH (14:51)
[2018-09-17] MEDS: SENNOSIDES/DOCUSATE SODIUM TAB PO SCH ×2 (14:51→20:22)
--- NOTE | 2018-09-17 15:13 | SOAPPROG ---
SOAP Progress Note Assessment/Plan: Assessment:Plan: see full dictated consult I suspect alcohol and fatty liver or med affect as cause of his LFT's Mark Cuellar MD [phone] 09/16/18 14:11 09/17/18 15:10 1) LFT's - check ALTON, ASMA, AMA - of note his previous workup >10 years ago was negative. I suspect alcohol/meds and fatty liver 2) alcohol - needs lifelong abstinence 3) Hep - not immune to Hep A nor Hep B - never exposed, needs vaccine at some point in future Subjective: CC- elevated LFT's pt sitting in chair comfortable no f/c/s no cp denies abdo pain Objective: Vital Signs Temp Pulse Resp BP Pulse Ox 36.5 C 90 21 H 150/84 H 92 09/17/18 15:05 09/17/18 15:05 09/17/18 15:05 09/17/18 15:05 09/17/18 15:05 Laboratory Results 09/15/18 04:36 09/15/18 04:36 09/16/18 09/17/18 09/18/18 05:59 05:59 05:59 Intake Total 1991 300 Output Total 175 250 Balance 1991 125 -250 Alert and oriented CTA S1S2 +BS, soft mild discomfort in RUQ on deep palpation no r/g Laboratory Tests 12/25/16 09/15/18 09/15/18 04:57 04:00 04:00 Hepatitis A IgM Ab NEGATIVE Hep Bs Antigen NEGATIVE Hep B Core IgM Ab NEGATIVE Hep Bs Antibody Negative Hep Bs Antibody, Quant <5.0 Hep B Core Total Ab NEGATIVE Hepatitis C Antibody NEGATIVE ICD10 Worksheet Patient Problems: Problems Problem Status Onset Alcohol abuse Acute Elevated LFTs Acute Syncope Acute Altered mental status Acute Cervical spondylosis with myelopathy Acute
[2018-09-17] MEDS ORDERED: GABAPENTIN 100 MG CAP PO SCH (16:05)
--- NOTE | 2018-09-17 17:25 | HOSPPROG ---
Hospitalist Progress Note Assessment/Plan: Patient is a 73 y/o male w hx of alcoholism. He was brought to the hospital after being found down. In addition he was incontinent of stool. He is on Flexeril and Oxycodone for chronic back pain. *acute alcohol withdrawal -CIWA -much improved today, will dc scheduled Librium and have prn if needed *elevated LFT's -ultrasound doesn't show etiology, gallbladder fine -reviewed his care w Dr Cuellar, likely from alcohol and fatty liver *tachycardia and hypertension -due to withdrawal -resolved *Chronic pain syndrome with chronic prescribed narcotics -has chronic Back pain, status post multiple surgeries, multiple steroid injections -says oxy helps -will add ibuprofen to his profile -pain is much improved w gabapentin *alcohol use and abuse -he is very motivated to quit drinking *gait instability -needs a SNF *obesity and has a large abdomen -reviewed w him that his large abdominal girth is affecting his back pain *plan: his daughter is flying in tomorrow night. He is willing to go to a SNF for strengthening but realizes he needs help with his alcohol abuse. He would like me to talk w his daughter tomorrow and discuss the plan. Subjective: Patric said he is feeling much better in regards to back pain and having very minimal withdrawal symptoms. Objective: Vital Signs Temp Pulse Resp BP Pulse Ox 36.5 C 90 21 H 150/84 H 92 09/17/18 15:05 09/17/18 15:05 09/17/18 15:05 09/17/18 15:05 09/17/18 15:05 Laboratory Results 09/15/18 04:36 09/15/18 04:36 09/16/18 09/17/18 09/18/18 05:59 05:59 05:59 Intake Total 1991 300 Output Total 175 250 Balance 1991 125 -250 - Physical Exam Constitutional: chronically ill appearing, obese Eyes: PERRL Ears, Nose, Mouth, Throat: hearing normal Respiratory: no respiratory distress Skin: warm Musculoskeletal: generalized weakness Neurologic: AAOx3 Psychiatric: interacting appropriately, not anxious, not encephalopathic ICD10 Worksheet Patient Problems: Problems Problem Status Onset Alcohol abuse Acute Elevated LFTs Acute Syncope Acute Altered mental status Acute Cervical spondylosis with myelopathy Acute
[2018-09-17] MEDS: PATCH REMOVAL 1 EA PATCH TD SCH (21:00)
[2018-09-17] MEDS ORDERED: THIAMINE HCL 100 MG TAB PO SCH (23:52)
[2018-09-18] MEDS: TEMAZEPAM 15 MG CAP PO PRN (00:44)
[2018-09-18] MEDS: IBUPROFEN 600 MG TAB PO PRN ×2 (04:45→11:48)
[2018-09-18] MEDS: oxyCODONE IR 15 MG TAB PO SCH ×3 (05:13→15:01)
--- NOTE | 2018-09-18 08:44 | HOSPPROG ---
Hospitalist Progress Note Assessment/Plan: Patient is a 73 y/o male w hx of alcoholism. He was brought to the hospital after being found down. In addition he was incontinent of stool. He is on Flexeril and Oxycodone for chronic back pain. *acute alcohol withdrawal -CIWA -much improved today, will dc scheduled Librium and have prn if needed *elevated LFT's -ultrasound doesn't show etiology, gallbladder fine -reviewed his care w Dr Cuellar, likely from alcohol and fatty liver *tachycardia and hypertension -due to withdrawal -episodic, suspect from withdrawal and is on a beta real at baseline *Chronic pain syndrome with chronic prescribed narcotics -has chronic Back pain, status post multiple surgeries, multiple steroid injections -says oxy helps -will add ibuprofen to his profile -pain is much improved w gabapentin *alcohol use and abuse -he is very motivated to quit drinking *gait instability -needs a SNF *obesity and has a large abdomen -reviewed w him that his large abdominal girth is affecting his back pain *plan: if Patric's heart rate slows down will dc after lunch. Spoke w his daughter, Shira, this morning. She is flying from [place] to [place] later today. Reviewed w her and w Patric the plans for SNF. Encouraged her and Patric to seek help w his alcohol dependence after he is stronger from rehab. He will be returning home and lives alone after he is strong enough. Subjective: Patric said his back continues to hurt, and has some pain from pulling a muscle in his left pectoralis getting oob. Objective: Vital Signs Temp Pulse Resp BP Pulse Ox 36.5 C 129 H 18 133/93 H 89 L 09/18/18 07:07 09/18/18 07:07 09/18/18 07:07 09/18/18 07:07 09/18/18 07:07 Laboratory Results 09/15/18 04:36 09/15/18 04:36 09/17/18 09/18/18 09/19/18 05:59 05:59 05:59 Intake Total 300 1500 Output Total 175 1900 150 Balance 125 -400 -150 - Physical Exam Constitutional: chronically ill appearing, obese, uncomfortable Eyes: PERRL Ears, Nose, Mouth, Throat: hearing normal Cardiovascular: regular rate and rhythym, tachycardia Respiratory: no respiratory distress Skin: warm Musculoskeletal: generalized weakness Neurologic: AAOx3 Psychiatric: interacting appropriately ICD10 Worksheet Patient Problems: Problems Problem Status Onset Alcohol abuse Acute Elevated LFTs Acute Syncope Acute Altered mental status Acute Cervical spondylosis with myelopathy Acute
[2018-09-18] MEDS ORDERED: THIAMINE HCL 100 MG TAB PO SCH (09:00)
[2018-09-18] MEDS: CHOLECALCIFEROL VIT D3 1,000 UNITS TAB PO SCH (09:13)
[2018-09-18] MEDS: GLUCOSAMINE SULF 500 MG CAP PO SCH (09:13)
[2018-09-18] MEDS: METOPROLOL TARTRATE 50 MG TAB PO SCH (09:13)
[2018-09-18] MEDS: MULTIVITAMINS 1 EACH TAB PO SCH (09:13)
[2018-09-18] MEDS: FOLIC ACID 1 MG TAB PO SCH (09:14)
[2018-09-18] MEDS: DULoxetine 60 MG CAP PO SCH (09:14)
[2018-09-18] MEDS: ASPIRIN 81 MG CHEWABLE TAB PO SCH (09:14)
[2018-09-18] MEDS: GABAPENTIN 100 MG CAP PO SCH ×2 (09:14→15:01)
[2018-09-18] MEDS: CYANO/VITAMIN B12 1000 MCG TAB PO SCH (09:14)
[2018-09-18] MEDS: CYCLOBENZAPRINE 10 MG TAB PO SCH (09:14)
[2018-09-18] MEDS: ENOXAPARIN 40 MG/0.4 ML SYR SC SCH (09:15)
[2018-09-18] MEDS: LIDOCAINE 4%/MENTHOL 1% PATCH TD SCH (09:16)
[2018-09-18] MEDS: SPIRONOLACTONE 25 MG TAB PO SCH (09:16)
[2018-09-18] MEDS: POLYETHYLENE GLYCOL 3350 17 GM PKT PO SCH (09:16)
[2018-09-18] MEDS: SENNOSIDES/DOCUSATE SODIUM TAB PO SCH (09:16)
[2018-09-18 11:42] VITALS: BP 104/67
--- NOTE | 2018-09-18 14:20 | PDIAF ---
- Diagnosis Diagnosis: alcohol withdrawal, elevated LFT's, chronic back pain Code Status: Do Not Resuscitate - Medication Management Discharge Medications: electronically signed and located in the Home Medication List. - Orders Services needed: Physical Therapy, Occupational Therapy Diet Recommendation: no restrictions on diet Diet Texture: Regular Texture Diet Additional Instructions: gabapentin is a new medication for you for back pain PT to work w Patric on body mechanics stop alcohol-it is ruining your life once you get out of rehab, recommending you go to AA join a local gym with a pool, pool therapy would really help you drop weight and help w the pain. It would be good for you to get involved with other people. follow up with Dr Cuellar, you have multiple labs in regards to your liver that are pending once you are feeling better; you will need to get Hepatitis B and A vaccinations follow up with Dr Toby Garcia-he is a wellness doctor that helps treating pain. [facility] is called [facility] follow up w Dr Smith in two weeks - Labs/Radiology LFT Date: 09/25/18 - Follow Up Care Current Providers and Referrals: Donte Garcia MD [Medical Doctor] - Kevin Smith MD [Medical Doctor] - Patient,NotPresent [Unknown] - As per Instructions
--- NOTE | 2018-09-18 14:24 | SOAPPROG ---
SOAP Progress Note Assessment/Plan: Assessment:Plan: see full dictated consult I suspect alcohol and fatty liver or med affect as cause of his LFT's Mark Cuellar MD [phone] 09/16/18 14:11 09/17/18 15:10 1) LFT's - check ALTON, ASMA, AMA - of note his previous workup >10 years ago was negative. I suspect alcohol/meds and fatty liver 2) alcohol - needs lifelong abstinence 3) Hep - not immune to Hep A nor Hep B - never exposed, needs vaccine at some point in future 09/18/18 14:23 as above 1) LFT's - ALTON, ASMA, AMA pending, can f/u as outpt 2) alcohol - needs abstinence 3) dispo - to rehab/SNF Subjective: A+Ox3 appears brighter today no n/v pain, melena Objective: Vital Signs Temp Pulse Resp BP Pulse Ox 36.5 C 96 18 104/67 93 09/18/18 11:19 09/18/18 11:19 09/18/18 11:19 09/18/18 11:19 09/18/18 11:19 Laboratory Results 09/15/18 04:36 09/15/18 04:36 09/17/18 09/18/18 09/19/18 05:59 05:59 05:59 Intake Total 300 1500 400 Output Total 175 1900 150 Balance 125 -400 250 CTA S1S2 +Bs, soft nt ICD10 Worksheet Patient Problems: Problems Problem Status Onset Alcohol abuse Acute Elevated LFTs Acute Syncope Acute Altered mental status Acute Cervical spondylosis with myelopathy Acute
--- NOTE | 2018-09-18 14:37 | ASDISCHSUM ---
Discharge Information Plan Status:Home with Home Health Medically Cleared to Leave:09/18/2018 Discharge Date:09/18/2018 CM D/C Disposition: ADT D/C Disposition: Projected Discharge Date:09/18/2018 11:00 AM Transportation at D/C: Discharge Delay Reason: Follow-Up Date:09/18/2018 11:00 AM Discharge Slot: Final Diagnosis: Placement Information Referral Type:*Home Health Care Services Referral ID:[id number] Provider Name: Address 1: Phone Number: Address 2: Fax Number: City: Selection Factors: State: Referral Type:*Senior Care/SNF Referral ID:[id number] Provider Name:Sheridan urena [place] Address 1:[address] Address 2: City:[place] Selection Factors: State:[place] Patient Contact Information Contact Name:INDIRA Relationship:Daughter Address: Work Phone: City: Alternate Phone: State/[facility] Code: Email: Financial Information Financial Class:Medicare Primary Plan Desc:MEDICARE INPATIENT Primary Plan Number:[id number] Secondary Plan Desc:[employer]/MDR SUPPLEMENT Secondary Plan Number:[id number] Assessment Information LACE LACE Length of stay for Answers: 4-6 days current admission Acuity / Level of Answers: Yes Care: Did the patient have an inpatient admission? Comorbidities - select Answers: Opioid dependence all that apply / Chronic pain Other Notes: HTN # of Emergency department Answers: 1-2 visits in the last 6 months Social determinants Answers: History of substance abuse (ETOH, street drugs, prescription drugs, etc.) Score: 16 Date Signed: 09/18/2018 02:34 PM Electronically Signed By:LARON Rivero [facility] CM Progress Note CM Note CM Note Notes: Spoke with pt in the room. Pt woke up after passing out on the floor and called 911. Pt lives alone. Pt has history of chronic pain, narcotic dependence, ETOH abuse and multiple orthopedic surgeries. He attributes ETOH abuse to decrease in opioid dosage to cope with chronic pain. PT is recommending [facility] and OT is recommending SNF. Pt prefers Home Care and has a history with [facility]. Referral sent to [facility]. Pt is interested in medical terminologist alcohol recovery and was given ETOH recovery resources including a list of inpatient addiction rehab programs that take private insurance and Medicare. Pt stated he would likely follow up with this at home as he does not have reading glasses in the hospital and CM asked [facility] community health nurse supervisor to try to locate some for him. CM to follow. D/C Plan: [facility] pending acceptance Date Signed: 09/15/2018 04:25 PM Electronically Signed By:Shira Andino [facility] Progress Note CM Note CM Note Notes: CM spoke to pts son Juan Francisco on the phone (P#: [phone]). Juan Francisco lives in . Pts daughter Shira (P#: [phone]) lives in [place] and had a scheduled visit to [place] for tomorrow. Shira will be in [place] for 4 days. CM met w/ pt for dispo planning. Therapies are recommending SNF. Pt is agreeable to going to SNF. Pt has been to [facility] in the past. [facility] does not have any beds for or Saturday. Anticipate d/c for tomorrow. CM provided pt w/ senior blue book. Pt has chosen [facility]. Referral sent. CM to follow. Plan: [facility] Date Signed: 09/17/2018 02:49 PM Electronically Signed By:LARON Rivero Case Management Discharge Plan Note Case Management Discharge Discharge Order Complete? Answers: Yes Patient to Obtain Answers: Other Notes: [facility] Medications Transportation Arranged Answers: Other Notes: [facility] w/c transport Transport will Pick (Date 09/18/2018 03:30 PM & Time) EMTALA Complete Answers: No Case Management Transport Answers: No Form Complete Faxed Final Orders Answers: Yes Agency/Facility Transfer Answers: Yes Report Printed & Faxed to Receiving Agency Family Notified Answers: Yes Discharge Comments Notes: Pts case discussed w/ KAY Velasquez. Pt is being d/c'd today to [facility]. DC orders sent. RIO Juan will call to give report. CM called pts daughter and notified her of the d/c. She will arrive in [facility] and bring pt clothes. CM available for changes. Plan: [facility] Date Signed: 09/18/2018 02:36 PM Electronically Signed By:LARON Rivero Intervention Information Intervention Type:*Incorrect Registration Date of Service:09/15/2018 08:57 AM Patient Type:Observation Staff Member:Kamille Angulo Hours: Discipline: Severity: Comment:
--- NOTE | 2018-09-18 19:36 | GDS ---
[f rep st] DISCHARGE SUMMARY DISCHARGE DIAGNOSES: 1. Acute alcohol withdrawal. 2. Elevated liver function tests. 3. Tachycardia with associated hypertension. 4. Chronic pain syndrome with chronic continuous opiate use. 5. Alcohol use and abuse. 6. Gait instability. 7. Obesity. CONSULTATION: Dr. Mark Cuellar with Gastroenterology. HISTORY: Briefly, the patient is a 73-year-old gentleman with a history of alcoholism. He was brought to the hospital after being found down. He was incontinent of stool. He was taking Flexeril and oxycodone for his chronic back pain. In addition, he drinks alcohol. HOSPITAL COURSE BY PROBLEM: 1. Acute alcohol withdrawal. He has done well. His CIWA was discontinued. He has p.r.n. Librium if needed. 2. Elevated liver function tests. Ultrasound does not show any etiology. It is likely from alcohol and fatty liver. He has multiple labs pending and will follow up with Dr. Cuellar. 3. Tachycardia and hypertension. This is due to withdrawal. Today, he is markedly better after getting his beta real. 4. Chronic pain syndrome with chronic continuous opiate use. He has had multiple surgeries and multiple steroid injections. He says the oxycodone helps him. I have added ibuprofen to his home regimen, as well as gabapentin. I have talked to the patient that if he lost weight, that would really help his back pain too. 5. Alcohol use and abuse. He will be going to a half-way facility for strengthening. I spoke to their coordinator there. They will arrange for AA to come talk to him if he wants this. 6. Gait instability. He needs a half-way facility for strengthening. 7. Obesity. This is impacting his health. DISCHARGE CONDITION: Stable. VITAL SIGNS: Blood pressure is 104/67, heart rate of 96, respiratory rate of 18 , O2 sats on 1 L 93%, temperature is 36.5 Celsius. MEDICATIONS AT DISCHARGE: Please see the EMR. DISCHARGE INSTRUCTIONS: 1. Gabapentin is a new medication for his back pain. 2. Physical Therapy to work with the patient on his body mechanics. 3. Stop alcohol and get some type of rehab followup after he leaves the half-way facility. 4. Followup with Dr. Cuellar. He has multiple labs pending in regard to his liver. 5. He needs to get hepatitis B and A vaccinations. 6. Follow up with Dr. Toby Garcia. He likely can help the patient in regard to his chronic back pain and to follow up at [facility]. 7. Follow up with Dr. Gongora, his primary care provider, in the next 2 weeks. I have spoken to his daughter today and reviewed with her the plan of care. She is flying in from the [place] area to see her father. Greater than 30 minutes discharging and coordinating the patient's care. Copy requested to: Manoj Gongora MD /[id number]/MODL MTDD
== END 2018-09-18 15:34 | disposition home health service (06) | DRG 897 ==
LOC: EDUNIT# → OBSVTOIN 21:19 → F3N 22:14 → F3E 09-15 16:58
PROVIDERS: ADMIT Internal Medicine; ATTEND Internal Medicine
DX: F10.239 Alcohol dependence with withdrawal, unspecified (principal); R74.0 Nonspecific elevation of levels of transaminase and lactic acid dehydrogenase [LDH]; R94.5 Abnormal results of liver function studies; E66.9 Obesity, unspecified; M54.9 Dorsalgia, unspecified; G47.33 Obstructive sleep apnea (adult) (pediatric); I10 Essential (primary) hypertension; N40.0 Benign prostatic hyperplasia without lower urinary tract symptoms; Z66 Do not resuscitate; Z68.37 Body mass index [BMI] 37.0-37.9, adult; Z96.649 Presence of unspecified artificial hip joint; Z99.81 Dependence on supplemental oxygen; Z91.81 History of falling; Z98.1 Arthrodesis status
CPT/HCPCS: 84484-ER; 86255-90; 86704-90; 97116-GP; 97162-GP; 97166-GO; 97530-GO; 97530-GP; 97535-GO; G0472; G0480; J1650; J2060